=== PATIENT | female | born 1955 | race Caucasian/White ===

== ENCOUNTER 2020-03-23 19:53 | Emergency (ER) | payer MEDICARE, BC, SELFPAY ==
[2020-03-23 20:03] VITALS: BP 143/68; PULSE 79; RESP 16; TEMP 36.5; O2SAT 97
--- NOTE | 2020-03-23 20:11 | ED.GENADUL_ITS ---
Discharge Plan Disposition Patient Disposition: HOME Condition: Good Discharge Details Chief Complaint: Laceration Clinical Impression: Splinter Primary Care Provider: None,None ED Provider: Patrick Dexter Home Meds and New Rx's Prescriptions: New cephalexin [Keflex] 500 mg capsule 500 mg PO QID Qty: 20 RF: 0 Continued metformin 500 mg Tablet 500 mg PO DAILY RF: 0 atenolol 25 mg Tablet 25 mg PO DAILY RF: 0 simvastatin 40 mg Tablet 40 mg PO QPM RF: 0 diphenhydramine HCl [Benadryl] 25 mg Capsule 50 mg PO HS PRN (Reason: Sleep) RF: 0 sertraline 25 mg Tablet 25 mg PO DAILY RF: 0 melatonin 10 mg Tablet 10 mg PO HS PRNRF: 0 Discharge Instructions Instructions: Cephalexin (By mouth), Soft Tissue Foreign Body (ED) Additional Instructions: Encourage rest, ice, elevation. Tylenol and/or ibuprofen as needed for discomfort. Please use splint to help with discomfort. Please take the antibiotics as prescribed. Even if symptoms improve, please take the entire course. Please contact orthopedics to schedule follow-up appointment, number listed below. Referrals: Mauricio Tapia MD [ [facility] STAFF PHYSICIAN] - Discharge Data Discharge Date/Time-TO BE ENTERED AT DEPARTURE: 03/23/20 21:40 Medical Decision Making <NICK German - Last Filed: 03/24/20 12:11> Patient is a pleasant 65-year-old female presents today splinter in her left hand. She reports that 2 days ago she was making she is kebabs when if the wooden stick she was using insert and multiple fragments went into the dorsal aspect of the distal phalanx left middle digit. Patient is right-hand dominant. She has noted increased discomfort, swelling and erythema. She denies any fevers or chills. Erythema has not been spreading. She has not noted any discharge. She does state that she was able to do out some pieces but feels that there is a retained fragment still in the finger. Has not had surgery on this historically. Patient is concerned that she is supposed to undergo a aortic valve replacement and is concerned that infection may delay this. Tetanus is up-to-date. Patient also reports that she was advised not to have tetanus again as she was allergic last time she had approximately 6 years ago. Sensation is intact, brisk capillary refill. Unable to visualize or palpate any foreign body. Will obtain x-ray to evaluate for retained wooden fragment. <NICK Prather - Last Filed: 03/23/20 21:33> I assumed care of the patient pending imaging. Virtual radiology read x-ray as no convincing radiopaque foreign body. A faint calcification, ulnar aspect of the third DIP joint, in association degenerative changes. Likely chronic and degenerative in nature. I discussed these findings with patient. She already has a finger splint and was given her dose of Keflex. I evaluated her finger. No obvious foreign body identified. Potentially early cellulitis. Patient will be provided a prescription for Keflex and she will be given a referral to o rthopedics for reevaluation. Patient has no additional questions or concerns and is comfortable this plan HPI <NICK German - Last Filed: 03/24/20 12:11> General Mode of arrival: ambulatory . Date/Time Provider Initiated Documentation: 03/23/20 20:11 . Limitations to Documentation: no limitations . Information obtained by: patient and RN notes reviewed . History of Present Illness 65 year old F presents to the emergency department with the chief complaint of splinter dorsal left middle finger, described as severe, with intensity rated at 10. Quality is described as sharp, and is localized to the left and upper extremity. Patient reports no radiation. Patient started experiencing this day(s) (2) and it has been constant. Immobilization improves symptom(s), Movement worsens symptoms . Patient notes no other symptoms.. Patient did receive the following treatments prior to arrival, none Related Data Home Medications Medication Instructions Recorded Confirmed atenolol 25 mg PO DAILY 03/23/20 03/23/20 cephalexin [Keflex] 500 mg PO QID #20 cap 03/23/20 diphenhydramine HCl [Benadryl] 50 mg PO HS PRN 03/23/20 03/23/20 melatonin 10 mg PO HS PRN 03/23/20 03/23/20 metformin 500 mg PO DAILY 03/23/20 03/23/20 sertraline 25 mg PO DAILY 03/23/20 03/23/20 simvastatin 40 mg PO QPM 03/23/20 03/23/20 Previous Rx's Medication Instructions Recorded cephalexin [Keflex] 500 mg PO QID #20 cap 03/23/20 Allergies Allergy/AdvReac Type Severity Reaction Status Date / Time aspirin Allergy Unverified 03/23/20 20:06 cefaclor [From Ceclor] Allergy Unverified 03/23/20 20:06 Penicillins Allergy Unverified 03/23/20 20:06 Sulfa (Sulfonamide Allergy Unverified 03/23/20 20:06 Antibiotics) Tetanus Vaccines and Toxoid Allergy Unverified 03/23/20 20:06 General Stated Complaint: Laceration RAISSA: 4 Review of Systems <NICK German - Last Filed: 03/24/20 12:11> Constitutional Constitutional: Reports as per HPI, Denies chills and Denies fever(s) Musculoskeletal Musculoskeletal: Reports as per HPI Integumentary/Breasts Skin/Breast: Reports as per HPI Neurologic Neurologic: Reports as per HPI, Denies sensory deficit and Denies paresthesias PFSH <NICK German - Last Filed: 03/24/20 12:11> Social History Smoking/Tobacco Use Status: Never Alcohol Intake: current Alcohol Intake frequency: holidays/special occasions only Alcohol type: beer Drug use: Never Substance use type: does not use Do you feel safe at home: Yes Do you feel safe in your relationship?: Yes Exam <NICK German - Last Filed: 03/24/20 12:11> Const General: cooperative, healthy appearing, comfortable, no acute distress and well developed Nutritional Appearance: well nourished and overweight Orientation: alert and awake Resp Effort & Inspection: normal respiratory effort, able to speak in complete sentences and no respiratory distress Cardio Rate: regular rate Rhythm: regular rhythm Skin General skin exam: erythema (dorsal aspect of left middle finger over distal phalanx) Trauma: puncture (same side radial aspect) Neuro General: patient alert and patient awake Cognition: normal cognition Speech: speech normal Gait: normal gait Sensory Exam: no sensory deficits noted Extrem Left upper extremity: normal capillary refill, wrist Details: normal to inspection and hand Details: normal capillary refill, neuromotor exam normal, neurosensory exam normal, tendon exam normal (able to flex and extend DIP middle digit against resistance, 5/5), tenderness Location: of the 3rd digit Location: at the distal phalanx and at the DIP joint, vascular exam Details: radial pulse present and normal capillary refill, swelling Location: of the 3rd digit Location: at the distal phalanx and puncture wound (very small, healed over); no crepitus and no foreign bodies (none visualized); abnormal to inspection (skin as above) and ROM limited (limited flexion of the left middle DIP joint) Psych Appearance: grossly normal and well kempt Mental Status: mental status grossly normal Speech and Movement: speech and movement normal Course <NICK German - Last Filed: 03/24/20 12:11> Vital Signs Vital signs: Vital Signs Temperature 36.5 C 03/23/20 20:03 Pulse 79 03/23/20 20:03 Respiratory Rate 16 03/23/20 20:03 Blood Pressure 143/68 H 03/23/20 20:03 Pulse Oximetry 97 03/23/20 20:03 Temperature 36.5 C 03/23/20 20:03 Temperature Source Skin 03/23/20 20:03 Pulse 79 03/23/20 20:03 Respiratory Rate 16 03/23/20 20:03 Respiratory Effort 03/23/20 20:08 Blood Pressure 143/68 H 03/23/20 20:03 Pulse Oximetry 97 03/23/20 20:03 Oxygen Delivery Method Room Air 03/23/20 20:03 Oxygen Flow Rate 0 03/23/20 20:03 Pain Level 10 03/23/20 20:03 Sign Out <NICK German - Last Filed: 03/24/20 12:11> Sign Out Data: Sign Out Comment: Care transition to Venkatesh Dexter PA-C with imaging pending Last updated by Jocelyn Alarcon PA at 03/23/20 21:06
--- NOTE | 2020-03-23 20:15 | DI.RAD_ITS ---
EXAM: XR FINGER LT MIDDLE CLINICAL HISTORY: ? wooden FB distal phalanx TECHNIQUE: COMPARISON: No exams were available for comparison FINDINGS: Three views were obtained. There are degenerative changes at DIP joint. There is no evident foreign body or fracture. IMPRESSION:
[2020-03-23] MEDS: Cephalexin 500 MG CAP PO (21:10)
--- NOTE | 2020-03-23 21:14 | DI.VRAD_ITS ---
PROCEDURE INFORMATION: Exam: XR Left Finger(s) Exam date and time: 03/23/2020 20:51 Age: 65 years old Clinical indication: Other: ? Wooden fb distal phalanx TECHNIQUE: Imaging protocol: XR Left fingers. Views: Minimum 2 views. COMPARISON: No relevant prior studies available. FINDINGS: Bones/joints: No acute fracture or subluxation. A faint calcification, ulnar aspect of the 3rd DIP joint, in association with degenerative changes. Soft tissues: No convincing radiopaque foreign body. IMPRESSION: 1. No convincing radiopaque foreign body. 2. A faint calcification, ulnar aspect of the 3rd DIP joint, in association with degenerative changes. Likely chronic and degenerative in nature. Dictated and Authenticated by: Heidi Puckett MD. Ordering:MARYBETH Banks MD
== END 2020-03-23 21:40 | disposition home or self-care (01) ==
LOC: ER 21:37
PROVIDERS: Emergency Provider Physician Assistant
DX: S60.453A Superficial foreign body of left middle finger, initial encounter (principal); W45.8XXA Other foreign body or object entering through skin, initial encounter
CPT/HCPCS: 99283; 73140

== ENCOUNTER → 2020-03-26 11:24 | Outpatient (BNVA) | payer MEDICARE, BC, SELFPAY | PROVIDERS: Visit Provider Surgery | DX: S60.453A Superficial foreign body of left middle finger, initial encounter (principal); W45.8XXA Other foreign body or object entering through skin, initial encounter | CPT/HCPCS: 64450; 99202; 99213 ==

== ENCOUNTER → 2020-03-29 12:56 | Outpatient (BNVA) | payer MEDICARE, BC, SELFPAY | PROVIDERS: Visit Provider Surgery | DX: S60.453D Superficial foreign body of left middle finger, subsequent encounter (principal); W45.8XXD Other foreign body or object entering through skin, subsequent encounter | CPT/HCPCS: 10120; 99212 ==

== ENCOUNTER → 2020-03-31 12:53 | Outpatient (BNVA) | payer MEDICARE, BC, SELFPAY | PROVIDERS: Visit Provider Surgery | DX: Z48.817 Encounter for surgical aftercare following surgery on the skin and subcutaneous tissue (principal); T14.8XXA Other injury of unspecified body region, initial encounter ==

== ENCOUNTER 2020-09-04 08:13 | Emergency (ER) | payer MEDICARE, BC, SELFPAY ==
--- NOTE | 2020-09-04 08:15 | RT.EKG_ITS ---
APPROVED REPORT Exam: Resting ECG Patient Location: E HR:82 bpm ECG Measurements Heart Rate 82 AXIS SC 128 P 64 QRSd 93 QRS 22 QT 380 T 24 QTc 444 Conclusion Sinus rhythm...normal P axis, V-rate 60- 99 Physician: jenny, no stemi
[2020-09-04 08:22] VITALS: BP 185/79; PULSE 82; RESP 17; TEMP 36.5; O2SAT 96; O2SAT 97
--- NOTE | 2020-09-04 08:31 | W.ED.GENAD ---
Discharge Plan Disposition Patient Disposition: HOME Condition: Stable Discharge Details Clinical Impression: Diverticulitis Primary Care Provider: Rubina Lima ED Provider: Guillermina Marcos Home Meds and New Rx's Prescriptions: New ciprofloxacin HCl 500 mg tablet 500 mg PO BID 10 Days Qty: 20 RF: 0 metronidazole [Flagyl] 500 mg tablet 500 mg PO BID 10 Days Qty: 20 RF: 0 ondansetron HCl [Zofran] 4 mg tablet 4 mg PO Q8H PRN (Reason: nausea and vomiting) Qty: 7 RF: 0 Continued epinephrine 0.3 mg/0.3 mL auto-injector 0.3 mg IM ONCE PRN (Reason: anaphylaxis) Qty: 2 RF: 0 metformin 500 mg tablet 500 mg PO DAILY Qty: 90 RF: 3 simvastatin 40 mg Tablet 40 mg PO QPM RF: 0 melatonin 10 mg Tablet 10 mg PO HS PRNRF: 0 atenolol 25 mg tablet 25 mg PO DAILY RF: 0 diphenhydramine HCl [Benadryl] 25 mg capsule 50 mg PO HS RF: 0 Discharge Instructions Instructions: Diverticulitis (ED), Diverticulitis Diet (ED) Additional Instructions: Follow up with primary care provider in 3-5 days. Return to ED sooner if any worsening or concerns. Increase oral fluids. Take antibiotics as prescribed. Return for fever, continued vomiting or any concerns. Referrals: Rubina Lima, [employer] [Primary Care Provider] - Discharge Data Discharge Date/Time-TO BE ENTERED AT DEPARTURE: 09/04/20 13:22 Medical Decision Making 65-year-old female presents to the ER chief complaint of nausea vomiting and chills. She reports she woke up this morning with chills, urine with nausea and vomited. X3. Patient reports that she had 2 patches of red blood noted in one episode of emesis. Denies diarrhea or dysuria. Denies any chest pain or abdominal pain. She reports she did have a normal bowel movement this morning. Denies any other symptoms. She does have a past medical history of diverticulitis, diabetes, asthma, anxiety, murmur, osteoarthritis. Surgical history includes appendectomy, . Exam: CT Abdomen And Pelvis With Contrast Exam date and time: 09/04/2020 10:06 AM Age: 65 years old Clinical indication: Nausea and vomiting; Patient HX: Nausea, vomiting, HX of diverticulitis. (IV); COMPARISON: No relevant prior studies available. FINDINGS: Liver: Diffuse fatty infiltration of the liver. Gallbladder and bile ducts: Normal. No calcified stones. No ductal dilation. Pancreas: Normal. No ductal dilation. Spleen: Normal. No splenomegaly. Adrenal glands: Normal. No mass. Kidneys and ureters: Normal. No hydronephrosis. Stomach and bowel: Bulky diverticulosis of the descending colon and sigmoid colon. Mild pericolonic soft tissue stranding about the mid sigmoid colon involving a segment measuring approximately 10 cm in length. The wall of this segment of colon is slightly thickened and findings are most suggestive of acute diverticulitis. No free air is identified. No fluid collection is identified. Recommend follow-up CT or colonoscopy when acute symptoms have resolved to make sure that the bowel wall thickening does not represent circumferential. Large amount of stool in the colon. Appendix: No evidence of appendicitis. Intraperitoneal space: See Stomach and bowel finding. Vasculature: Vascular calcifications. No aneurysm identified. Very dense atheromatous calcification at the origin of the celiac artery. Lymph nodes: Unremarkable. No enlarged lymph nodes. Urinary bladder: Unremarkable as visualized. Reproductive: Unremarkable as visualized. Bones/joints: Degenerative arthritis in the spine and pelvis. Anterior bridging osteophytes lower thoracic spine. Soft tissues: Unremarkable. IMPRESSION: 1. Findings most consistent with acute sigmoid diverticulitis but circumferential bowel wall thickening should be correlated with repeat CT or colonoscopy history after acute symptoms are resolved 1056: Patient still complaining of nausea which increases when she moves. Upon entering room she is asleep but awakens easily. Discussed CT results and need for antibiotics. At this time patient states that she still feels very sick and she feels that this is the second she is ever felt. Hospitalist paged for possible admission for acute diverticulitis. Spoke with hospitalist who recommends trying a p.o. trial prior to excepting for admission. She also recommends consult with surgery. Patient was given a popsicle which she is tolerating without difficulty no further vomiting noted. At this time since she is tolerating p.o. will discharge home. She is getting IV antibiotics here in department. Discussed plan of care with patient who verbalizes understanding. HPI General Mode of arrival: ambulatory. Date/Time Provider Initiated Documentation: 09/04/20 08:14. Limitations to Documentation: no limitations. Information obtained by: patient. HPI Narrative: 65-year-old female presents to the ER chief complaint of nausea vomiting and chills. She reports she woke up this morning with chills, urine with nausea and vomited. X3. Patient reports that she had 2 patches of red blood noted in one episode of emesis. Denies diarrhea or dysuria. Denies any chest pain or abdominal pain. She reports she did have a normal bowel movement this morning. Denies any other symptoms. She does have a past medical history of diverticulitis, diabetes, asthma, anxiety, murmur, osteoarthritis. Surgical history includes appendectomy, . Related Data Home Medications Medication Instructions Recorded Confirmed melatonin 10 mg PO HS PRN 03/23/20 09/04/20 simvastatin 40 mg PO QPM 03/23/20 09/04/20 atenolol 25 mg tablet 25 mg PO DAILY 07/09/20 09/04/20 diphenhydramine HCl 25 mg capsule 50 mg PO HS 07/09/20 09/04/20 epinephrine 0.3 mg/0.3 mL 0.3 mg IM ONCE PRN #2 ea 07/09/20 09/04/20 injection, auto-injector metformin 500 mg tablet 500 mg PO DAILY #90 tab 07/09/20 09/04/20 ciprofloxacin HCl 500 mg PO BID 10 Days #20 tab 09/04/20 metronidazole [Flagyl] 500 mg PO BID 10 Days #20 tab 09/04/20 ondansetron HCl [Zofran] 4 mg PO Q8H PRN #7 tab 09/04/20 Previous Rx's Medication Instructions Recorded epinephrine 0.3 mg/0.3 mL 0.3 mg IM ONCE PRN #2 ea 07/09/20 injection, auto-injector metformin 500 mg tablet 500 mg PO DAILY #90 tab 07/09/20 ciprofloxacin HCl 500 mg PO BID 10 Days #20 tab 09/04/20 metronidazole [Flagyl] 500 mg PO BID 10 Days #20 tab 09/04/20 ondansetron HCl [Zofran] 4 mg PO Q8H PRN #7 tab 09/04/20 Allergies Allergy/AdvReac Type Severity Reaction Status Date / Time cefaclor [From [facility]] Allergy Severe hives Unverified 09/04/20 08:30 Tetanus Vaccines and Toxoid Allergy Severe red Unverified 09/04/20 08:30 swollen arm for weeks aspirin Allergy Intermediate Platlets Unverified 09/04/20 08:30 dont clot Penicillins Allergy Intermediate hives Unverified 09/04/20 08:30 diphenoxylate Allergy Unknown Unverified 09/04/20 08:30 Sulfa (Sulfonamide Allergy Unverified 09/04/20 08:30 Antibiotics) venom-wasp Allergy Verified 09/04/20 08:30 General Stated Complaint: GenMedical RAISSA: 3 Review of Systems Narrative: Constitutional: Negative for weight loss, alert and oriented, well groomed, normal body habitus, appears comfortable. HEENT: Denies trauma, headaches, blurry vision, nasal discharge, sore throat, trouble swallowing. Chest: Denies chest pain, palpitations, irregular rhythm, hypertension. Respiratory: Denies Shortness of breath, cough, hemoptysis. GI: Denies abdominal pain, diarrhea, constipation. Positive nausea vomiting : Denies dysuria, hematuria, flank pain, rectal bleeding. Neuro: Denies dizziness, blurry vision, weakness, syncope, headache or facial numbness. Hematologic: Denies easy bruising, intolerance to heat or cold, hair loss. [facility] Medical History Abnormality of heart beat arrhythmia Atenolol Anxiety Deep breathing Asthma PRN Albuterol rajiv during resp illness Bilateral cataracts Diabetes mellitus Dx'ed ~2017 Diverticulitis Fibromyalgia Manages with lifestyle; FLexeril PRN; recent fall exacerbates Migraine Ocular migraines; +scotoma, unilateral, usually without pain Murmur Aortic Valve; ECHO; [facility] Osteoarthritis hips, knees, hands; cold exacerbation Pneumonia Stress fracture of tibia Tinea corporis Surgical History History of appendectomy (~1958) History of (~1981) History of lumpectomy of right breast (~1993) History of right knee surgery (~2004) Family History Paternal Grandfather Alcohol abuse Mother Anxiety Depression Daughter Anxiety Asthma Niece , Age 23 Leukemia Father Diabetes Heart disease Hypertension Diverticulosis Uncle Diabetes Sister Diverticulosis Social History (Reviewed 09/04/20 @ 08:40 by Guillermina Mccarthy Smoking/Tobacco Use Status: Never Tobacco: How many years used: 1 Second Hand Exposure: Yes Smoking risk assessment performed?: Yes Alcohol Intake: current Alcohol Intake frequency: holidays/special occasions only Alcohol type: beer Drug use: Never Substance use type: does not use Adopted: No Caregiver/Support person: No Household members: spouse, family and children Housing: house Number of Children: 1 number of grandchildren: 4 Communication Needs: Corrective Lenses 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 Appears stated age. Normal body habitus. Head: Normocephalic, no trauma. Eyes: Pupils PERRLA, Red reflex noted, EOM's intact. Eyelids symmetrical without lesions, discharge, or swelling. ENT: Bilateral TM's WNL, External ear normal to inspection, no mastoid TTP, swelling, or erythema, Nasal turbinates WNL, no nasal discharge. Normal dentition, Posterior pharynx WNL, no exudate. Chest: RRR, murmur auscultated, distal pulses intact. Resp: Lungs clear to auscultation bilaterally, no wheezes, rales, or rhonchi. Abdomen: Soft nondistended, nontender to palpation all 4 quadrants. Musculoskeletal: Normal gait, 5/5 strength to all four extremities. Skin: No suspicious rashes or lesions. Capillary refill less than 2 sec. Neurologic: Cranial nerves II-XII intact. Alert and oriented x 3. DTR's intact. Hematologic/Lymphatic: No ecchymosis, no lymphadenopathy. Course Vital Signs Vital signs: Vital Signs Temperature 36.5 C 09/04/20 08:22 Pulse 82 09/04/20 08:22 Respiratory Rate 17 09/04/20 08:22 Blood Pressure 185/79 H 09/04/20 08:22 Pulse Oximetry 97 09/04/20 08:22 Temperature 36.5 C 09/04/20 08:22 Temperature Source Temporal Artery Scan 09/04/20 08:22 Pulse 82 09/04/20 08:22 Respiratory Rate 17 11/14/20 08:22 Respiratory Effort Non-Labored 09/04/20 08:26 Blood Pressure 185/79 H 09/04/20 08:22 Blood Pressure Position Supine 09/04/20 08:22 Pulse Oximetry 97 09/04/20 08:22 Oxygen Delivery Method Room Air 09/04/20 08:22 Oxygen Flow Rate 0 09/04/20 08:22
[2020-09-04] MEDS: Ondansetron 4 MG/2 ML VIAL IVP (08:48)
[2020-09-04] MEDS: Normal Saline 1,000 ML 1000 ML IV ×2 (08:48→11:19)
[2020-09-04 08:50] LABS: Abs Immature Grans 0.05 10^3/uL (0.0-0.06); Absolute Basophil Count 0.03 10^3/uL (0.0-0.2); Absolute Lymphocyte Count 1.09 10^3/uL (1.2-3.4); Absolute Neutrophil Count 11.15 10^3/uL (1.2-6.7); Basophils % 0.2; HCT 41.8 % (36.0-46.0); HGB 13.7 g/dL (11.2-15.7); Immature Grans % 0.4; Lymphocytes % 8.5; MCH 29.7 pg (27.0-33.0); MCHC 32.8 % (32.0-36.0); MCV 90.5 fL (80-95); MPV 10.6 fL (8.0-11.0); Monocytes % 4.3; Neutrophils % 86.6; Nucleated RBC 0 %; Platelet Count 153 10^3/uL (130-400); RBC 4.62 10^6/uL (3.93-5.22); RDW 12.6 % (11.7-14.6); RDW-SD 40.9 fL; WBC 12.88 10^3/uL (4.4-10.8)
[2020-09-04 08:51] LABS: Absolute Monocyte Count 0.55 10^3/uL (0.1-0.8); Lactate 2.2 mmol/L (0.6-1.4)
[2020-09-04 08:58] LABS: Bilirubin Negative (Negative); Blood Negative (Negative); Glucose Negative (Negative); Ketones Negative (Negative); Leukocyte Esterase Moderate (Negative); Nitrite Negative (Negative); Specific Gravity >= 1.030 (1.005-1.025); Urobilinogen 0.2 EU/dL (Up TO 0.2); pH 5.5 (5-8)
[2020-09-04 09:01] LABS: Clarity Sl Cloudy (Clear)
[2020-09-04 09:11] LABS: Bacteria Moderate HPF (Negative); C & S Indicated? Yes; Casts Negative LPF (Negative); Crystals Negative HPF (Negative); Epithelial Cells Few HPF (Negative); Mucus Trace (Negative); Other Cells Few Renal (Negative); RBC Negative HPF (0-2); WBC >50 HPF (0-5)
[2020-09-04 09:18] LABS: ALT 12 U/L (14-59); AST 22 U/L (15-37); Albumin 3.9 g/dL (3.4-5.0); Alkaline Phosphatase 73 U/L (46-116); Anion Gap 7.6 mmol/L (3-11); BUN 15 mg/dL (7-18); Bilirubin, Total 0.8 mg/dL (0.2-1.0); CO2 29.4 mmol/L (21.0-32.0); CREATININE 0.99 mg/dL (0.55-1.02); Calcium 8.8 mg/dL (8.5-10.1); Chloride 102 mmol/L (98-107); Estimated GFR 56.12 (mL/min/1.73m2); Glucose 164 mg/dL (74-106); Magnesium 1.8 mg/dL (1.8-2.4); Potassium 4.5 mmol/L (3.5-5.1); Sodium 139 mmol/L (136-145); Total Protein 7.7 g/dL (6.4-8.2)
[2020-09-04 09:20] LABS: Troponin I < 0.05 ng/mL (<0.06)
--- NOTE | 2020-09-04 10:10 | DI.CT_ITS ---
EXAM: CT ABDOMEN PELVIS W INDICATION: Nausea, vomiting, Hx of diverticulitis. COMPARISON: No exams were available for comparison TECHNIQUE: FINDINGS: CT examination of the abdomen and pelvis was performed with a bolus infusion of 100 cc of Omnipaque 3 50. Images obtained through the lung bases are unremarkable. The liver is unremarkable in appearance except for possible mild hepatic steatosis. No focal lesion identified.. Gallbladder and bile ducts are CT normal. Pancreas appears normal. Spleen is unremarkable in appearance. Adrenals appear normal. The kidneys are unremarkable with no evidence of hydronephrosis, nephrolithiasis, or renal mass.. Ur inary bladder unremarkable. Abdominal aorta is of normal diameter and no major vascular abnormality is seen. No abdominal wall hernia. No abdominal or pelvic adenopathy. MAT[employer]S [employer]ED[employer]ER structures appear intact. The appendix is not specifically identified but there is no evidence of appendicitis. There is circumferential wall thickening of significant portion of the sigmoid colon, mild pericoloni c fat edema may be present, findings are suggestive of sigmoid diverticulitis. Other etiologies not excluded, colonoscopy suggested following treatment. IMPRESSION: Findings suggesting acute sigmoid diverticulitis as described above. Possible mild hepatic steatosis. RADIATION DOSE DELIVERED: 1,366.5mGy.cm Total DLP 1,366.5mGy.cm Total DLP
--- NOTE | 2020-09-04 10:32 | DI.VRAD_ITS ---
PROCEDURE INFORMATION: Exam: CT Abdomen And Pelvis With Contrast Exam date and time: 09/04/2020 10:06 AM Age: 65 years old Clinical indication: Nausea and vomiting; Patient HX: Nausea, vomiting, HX of diverticulitis. TECHNIQUE: Imaging protocol: Computed tomography of the abdomen and pelvis with intravenous contrast. Radiation optimization: All CT scans at this facility use at least one of these dose optimization techniques: automated exposure control; mA and/or kV adjustment per patient size (includes targeted exams where dose is matched to clinical indication); or iterative reconstruction. Contrast material: OMNI-PAQUE 350; Contrast volume: 100 ml; Contrast route: INTRAVENOUS (IV); COMPARISON: No relevant prior studies available. FINDINGS: Liver: Diffuse fatty infiltration of the liver. Gallbladder and bile ducts: Normal. No calcified stones. No ductal dilation. Pancreas: Normal. No ductal dilation. Spleen: Normal. No splenomegaly. Adrenal glands: Normal. No mass. Kidneys and ureters: Normal. No hydronephrosis. Stomach and bowel: Bulky diverticulosis of the descending colon and sigmoid colon. Mild pericolonic soft tissue stranding about the mid sigmoid colon involving a segment measuring approximately 10 cm in length. The wall of this segment of colon is slightly thickened and findings are most suggestive of acute diverticulitis. No free air is identified. No fluid collection is identified. Recommend follow-up CT or colonoscopy when acute symptoms have resolved to make sure that the bowel wall thickening does not represent circumferential. Large amount of stool in the colon. Appendix: No evidence of appendicitis. Intraperitoneal space: See Stomach and bowel finding. Vasculature: Vascular calcifications. No aneurysm identified. Very dense atheromatous calcification at the origin of the celiac artery. Lymph nodes: Unremarkable. No enlarged lymph nodes. Urinary bladder: Unremarkable as visualized. Reproductive: Unremarkable as visualized. Bones/joints: Degenerative arthritis in the spine and pelvis. Anterior bridging osteophytes lower thoracic spine. Soft tissues: Unremarkable. IMPRESSION: 1. Findings most consistent with acute sigmoid diverticulitis but circumferential bowel wall thickening should be correlated with repeat CT or colonoscopy history after acute symptoms are resolved to make sure there is not an underlying mass. No fluid collection. No free air. No obstruction. Dictated and Authenticated by: Ariana Kennedy MD. Ordering:LEONARDO Sarmiento MD
[2020-09-04 11:14] VITALS: BP 140/68; PULSE 85; RESP 18; TEMP 36.6; O2SAT 97
[2020-09-04] MEDS: Ondansetron O.D.T. 4 MG TABEF PO (11:18)
[2020-09-04] MEDS: Meclizine 25 MG TAB PO (11:19)
[2020-09-04] MEDS: metroNIDAZOLE 500 MG/100 ML BAG 100 MG IVPB (11:19)
[2020-09-04] MEDS: CIPROFLOXACIN 400 MG/200 ML BAG 200 MG IVPB (12:21)
[2020-09-04 12:30] VITALS: BP 137/71; PULSE 86
[2020-09-04 12:34] LABS: Troponin I < 0.05 ng/mL (<0.06)
[2020-09-04 13:18] VITALS: BP 143/60; PULSE 77; RESP 17; TEMP 36.6; O2SAT 96
--- NOTE | 2020-09-04 16:58 | NUR.NOTE ---
Nursing Note: 1700---Daughter called asking when her mother should take her next dose of antibiotic---per Dr Yang--had IV doses in ER--start oral doses tommorow morning. Verbalizes under standing.
--- NOTE | 2020-09-04 17:21 | NUR.NOTE ---
Nursing Note: spoke with daughter who questions if fever requires return to ED. Consulted provider, who states presence of fever alone not reason to return to ED- if not with worsening symptoms. Pt's daughter educated on projected/expected timeline for improvement- may feel slightly better in 24-48 hours, then improving gradually.
== END 2020-09-04 13:22 | disposition home or self-care (01) ==
LOC: ER 12:43
PROVIDERS: Emergency Provider Registered Nurse Emergency; PCP Nurse Practitioner Adult Health
DX: K57.32 Diverticulitis of large intestine without perforation or abscess without bleeding (principal); R11.2 Nausea with vomiting, unspecified; E11.9 Type 2 diabetes mellitus without complications; Z79.84 Long term (current) use of oral hypoglycemic drugs
CPT/HCPCS: 36415; 80053; 87040; 93005; 96361; 96365; 96367; 96375; 99285; 74177; 81003; 81015; 83605; 83735; 84484; 85025; 87086; 93010; J0744; J2405

== ENCOUNTER 2020-09-08 21:04 | Outpatient (REF) | payer MEDICARE, BC, SELFPAY ==
[2020-09-08 19:40] LABS: Abs Immature Grans 0.03 10^3/uL (0.0-0.06); Absolute Basophil Count 0.01 10^3/uL (0.0-0.2); Absolute Eosinophil Count 0.01 10^3/uL (0.0-0.7); Absolute Lymphocyte Count 1.37 10^3/uL (1.2-3.4); Absolute Monocyte Count 0.74 10^3/uL (0.1-0.8); Absolute Neutrophil Count 4.61 10^3/uL (1.2-6.7); Basophils % 0.1; Eosinophils % 0.1; HGB 11.9 g/dL (11.2-15.7); Immature Grans % 0.4; Lymphocytes % 20.2; MCH 29.2 pg (27.0-33.0); MCHC 32.2 % (32.0-36.0); MCV 90.7 fL (80-95); MPV 10.6 fL (8.0-11.0); Monocytes % 10.9; Neutrophils % 68.3; Nucleated RBC 0 %; Platelet Count 175 10^3/uL (130-400); RBC 4.08 10^6/uL (3.93-5.22); RDW 12.2 % (11.7-14.6); RDW-SD 40.3 fL; WBC 6.77 10^3/uL (4.4-10.8)
== END 2020-09-08 21:24 ==
LOC: LBN 21:04
PROVIDERS: PCP Nurse Practitioner Adult Health; Visit Provider Nurse Practitioner Adult Health
DX: D72.829 Elevated white blood cell count, unspecified (principal); E11.9 Type 2 diabetes mellitus without complications; K57.92 Diverticulitis of intestine, part unspecified, without perforation or abscess without bleeding
CPT/HCPCS: 85025

== ENCOUNTER 2020-09-21 03:56 | Outpatient (CLI) | payer MEDICARE, BC, SELFPAY ==
[2020-09-21 09:21] LABS: HCT 42.8 % (36.0-46.0); HGB 13.9 g/dL (11.2-15.7); MCH 29.1 pg (27.0-33.0); MCHC 32.5 % (32.0-36.0); MCV 89.7 fL (80-95); MPV 10.5 fL (8.0-11.0); Platelet Count 290 10^3/uL (130-400); RBC 4.77 10^6/uL (3.93-5.22); RDW 12.4 % (11.7-14.6); RDW-SD 40.8 fL; WBC 7.41 10^3/uL (4.4-10.8)
[2020-09-21 10:29] LABS: Microalb ug/mg Crea 5.9 ug/mg Cr
[2020-09-21 10:38] LABS: ALT 19 U/L (14-59); AST 18 U/L (15-37); Alkaline Phosphatase 69 U/L (46-116); Anion Gap 6.9 mmol/L (3-11); BUN 19 mg/dL (7-18); Bilirubin, Total 0.9 mg/dL (0.2-1.0); CO2 29.1 mmol/L (21.0-32.0); CREATININE 1.04 mg/dL (0.55-1.02); Calcium 8.9 mg/dL (8.5-10.1); Chloride 102 mmol/L (98-107); Estimated GFR 53.02 (mL/min/1.73m2); Glucose 135 mg/dL (74-106); Lipase 74 U/L (73-393); Potassium 4.7 mmol/L (3.5-5.1); Sodium 138 mmol/L (136-145); TSH (W/Ref FT4) 1.43 uIU/mL (0.36-3.74); Total Protein 7.5 g/dL (6.4-8.2)
[2020-09-21 10:40] LABS: Hemoglobin A1C 6.3 % (<5.7)
[2020-09-21 10:58] LABS: Calculated LDL 92 mg/dL (<100); Cholesterol 178 mg/dL (<200); HDL Cholesterol 46 mg/dL (40-60); Triglyceride 204 mg/dL (<150)
[2020-09-23 04:45] LABS: Vitamin D 25 Total 23.4 ng/ml (30-100)
== END 2020-09-21 04:16 ==
PROVIDERS: PCP Nurse Practitioner Adult Health; Visit Provider Nurse Practitioner Adult Health
DX: E78.5 Hyperlipidemia, unspecified (principal); E11.9 Type 2 diabetes mellitus without complications; E55.9 Vitamin D deficiency, unspecified; F41.9 Anxiety disorder, unspecified; M85.80 Other specified disorders of bone density and structure, unspecified site; R10.9 Unspecified abdominal pain
CPT/HCPCS: 36415; 80053; 80061; 82306; 83690; 85027; 82043; 82570; 83036; 84443

== ENCOUNTER 2020-11-05 02:19 | Outpatient (CLI) | payer OTHER, SELFPAY ==
[2020-11-05 08:57] LABS: HCT 41.1 % (36.0-46.0); HGB 13.4 g/dL (11.2-15.7); MCH 29.2 pg (27.0-33.0); MCHC 32.6 % (32.0-36.0); MCV 89.5 fL (80-95); MPV 10.4 fL (8.0-11.0); Platelet Count 204 10^3/uL (130-400); RBC 4.59 10^6/uL (3.93-5.22); RDW 12.7 % (11.7-14.6); RDW-SD 41.5 fL; WBC 8.04 10^3/uL (4.4-10.8)
[2020-11-05 10:06] LABS: ALT 18 U/L (14-59); AST 17 U/L (15-37); Albumin 3.9 g/dL (3.4-5.0); Alkaline Phosphatase 74 U/L (46-116); Anion Gap 6.8 mmol/L (3-11); BUN 22 mg/dL (7-18); Bilirubin, Total 1.3 mg/dL (0.2-1.0); CO2 29.2 mmol/L (21.0-32.0); CREATININE 1.07 mg/dL (0.55-1.02); Chloride 101 mmol/L (98-107); Estimated GFR 51.31 (mL/min/1.73m2); Glucose 143 mg/dL (74-106); Potassium 4.5 mmol/L (3.5-5.1); Sodium 137 mmol/L (136-145); Total Protein 7.3 g/dL (6.4-8.2)
== END 2020-11-05 02:39 ==
PROVIDERS: PCP Nurse Practitioner Adult Health; Visit Provider Nurse Practitioner Adult Health
DX: E78.5 Hyperlipidemia, unspecified (principal); E55.9 Vitamin D deficiency, unspecified; E11.9 Type 2 diabetes mellitus without complications; F41.8 Other specified anxiety disorders; R79.89 Other specified abnormal findings of blood chemistry; K57.92 Diverticulitis of intestine, part unspecified, without perforation or abscess without bleeding; M85.88 Other specified disorders of bone density and structure, other site
CPT/HCPCS: 36415; 80053; 85027

== ENCOUNTER 2021-01-27 01:16 | Outpatient (CLI) | payer OTHER, SELFPAY ==
--- NOTE | 2021-01-27 10:02 | DI.RAD_ITS ---
CLINICAL HISTORY: r/o fx R posterior 11 12 ribs,RT RIB PAIN,PLEURODYNIA,R07.81,S/P FALL. COMPARISON: No exams were available for comparison FINDINGS: LUNGS:Clear. No pleural abnormality seen. HEART: Normal. MEDIASTINUM: Normal. BONES: No displaced rib fracture is seen. No bony destructive lesion is seen. Flowing osteophytes ar e no noted along the thoracic spine. Degenerative changes are seen in in both shoulders. OTHER FINDINGS: None. IMPRESSION: 1. Unremarkable radiographic appearance of the right ribs. 2. No acute pulmonary findings.
--- NOTE | 2021-01-27 10:02 | DI.RAD_ITS ---
EXAM: XR CERVICAL SPINE COMP 4-5V CLINICAL HISTORY: r/o fracture, s/p fall,CERVICALAGIA,M54.2,NECK PAIN. TECHNIQUE: 2D digital imaging was performed. COMPARISON: No exams were available for comparison FINDINGS: There is mild narrowing of the C2-3 and C6-7 disc spaces. There is moderate narrowing of the C3-4 th rough the C5-6 disc spaces. Endplate osteophytes are seen projecting mainly anteriorly. There are f acet degenerative changes throughout, greatest at C3-4 and C4-5. There is mild neural foraminal narr owing at these levels. There is straightening of the normal cervical lordosis secondary to the facet degenerative changes. IMPRESSION: Degenerative disc and facet changes, causing mild bilateral neural foraminal narrowing. DATA REPOSITORY: RADIATION DOSE DELIVERED:
--- NOTE | 2021-01-27 10:03 | DI.RAD_ITS ---
EXAM: XR THORACIC SPINE COMPLETE CLINICAL HISTORY: r/o fracture, s/p fall,S09.90XA,THORACIC BACK PAIN,M54.6. TECHNIQUE: 2D digital imaging was performed. COMPARISON: No exams were available for comparison FINDINGS: BONES: There is no fracture or destructive lesion. The vertebral bodies and posterior elements are un remarkable. DISKS: Flowing osteophytes are noted. SOFT TISSUE: Visualized lungs are clear. IMPRESSION: Degenerative disc changes. No acute abnormality. DATA REPOSITORY: RADIATION DOSE DELIVERED:
== END 2021-01-27 01:36 ==
PROVIDERS: PCP Nurse Practitioner Adult Health; Visit Provider Nurse Practitioner Adult Health
DX: S09.90XA Unspecified injury of head, initial encounter (principal); M54.6 Pain in thoracic spine; R07.81 Pleurodynia; W10.8XXA Fall (on) (from) other stairs and steps, initial encounter; M48.02 Spinal stenosis, cervical region; M50.322 Other cervical disc degeneration at C5-C6 level
CPT/HCPCS: 71046; 71100; 72050; 72072

== ENCOUNTER 2021-06-09 02:56 | Outpatient (CLI) | payer OTHER, SELFPAY ==
[2021-06-09 09:30] LABS: ALT 17 U/L (14-59); AST 18 U/L (15-37); Albumin 3.9 g/dL (3.4-5.0); Alkaline Phosphatase 69 U/L (46-116); Anion Gap 0.6 mmol/L (3-11); BUN 20 mg/dL (7-18); Bilirubin, Total 0.7 mg/dL (0.2-1.0); CO2 28.4 mmol/L (21.0-32.0); CREATININE 0.9 mg/dL (0.55-1.02); Calcium 8.9 mg/dL (8.5-10.1); Chloride 106 mmol/L (98-107); Glucose 138 mg/dL (74-106); Potassium 4.2 mmol/L (3.5-5.1); Sodium 135 mmol/L (136-145); Total Protein 6.9 g/dL (6.4-8.2)
== END 2021-06-09 02:57 | disposition home or self-care (01) ==
PROVIDERS: PCP Nurse Practitioner Adult Health; Visit Provider Nurse Practitioner Adult Health
DX: E55.9 Vitamin D deficiency, unspecified (principal); M85.80 Other specified disorders of bone density and structure, unspecified site; R79.89 Other specified abnormal findings of blood chemistry; R17 Unspecified jaundice
CPT/HCPCS: 36415; 80053; 82306

== ENCOUNTER 2023-07-06 12:38 | Outpatient (CLI) | payer OTHER, SELFPAY ==
--- OUTSIDE RECORDS SUMMARY | 2023-07-06 12:41 | XMS_ITS | Continuity of Care Document ---
Author Name Unknown Organization [facility] Address [address] [place] [address] Care Team Providers Care Cup Trimming Machine Operator Name Role Phone Rubina Galdamez Primary Care Physician [phone] Encounter [facility] [id number] Date(s): 03/27/23 - 03/27/23 [facility] [address] [place] [address] Discharge Disposition: Home Allergies, Adverse Reactions, Alerts Substance Reaction Severity Status cefaclor Unknown Active aspirin Moderate Active diphenoxylate Mild Active penicillins Mild Active sulfa drugs Mild Active Wasps Mild Active Assessment and Plan Future Appointments Medications Albuterol (Eqv-ProAir HFA) 90 mcg/inh inhalation aerosol 0 Refill(s) Start Date: 03/22/23 Status: Ordered aspirin 81 mg oral capsule 81 mg = 1 cap, Oral, Daily, do not exceed 48 capsules in 24 hours, # 30 cap, 0 Refill(s) Start Date: 03/22/23 Status: Ordered atorvastatin 40 mg oral tablet 40 mg = 1 tab, Oral, Daily, # 30 tab, 0 Refill(s) Start Date: 03/22/23 Status: Ordered cyclobenzaprine 5 mg oral tablet 5 mg = 1 tab, Oral, TID, PRN as needed for muscle spasm, # 30 tab, 0 Refill(s) Start Date: 03/22/23 Status: Ordered EPINEPHrine 0.3 mg injectable kit 0.3 mg =, IM, Once, # 1 EA, 0 Refill(s) Start Date: 03/22/23 Status: Ordered melatonin 10 mg oral tablet 10 mg = 1 tab, Oral, every night at bedtime, PRN as needed for insomnia, # 200 tab, 0 Refill(s) Start Date: 03/22/23 Status: Ordered metoprolol succinate 50 mg oral capsule, extended release 50 mg = 1 cap, Oral, Daily, # 30 cap, 0 Refill(s) Start Date: 03/22/23 Status: Ordered nystatin 100,000 units/g topical cream 1 yesenia, Topical, BID, # 15 g, 0 Refill(s) Start Date: 03/22/23 Status: Ordered Vitamin D3 50 mcg (2000 intl units) oral tablet, chewable 50 mcg = 1 tab, Oral, Daily, # 30 EA, 0 Refill(s) Start Date: 03/22/23 Status: Ordered zolpidem 5 mg oral tablet See Instructions, PRN as needed for insomnia, Take 1 tab PO on night of sleep study AFTER setup, may repeat x 1 if ineffective after 30 min., # 2 tab, 0 Refill(s), Pharmacy: [phone] Start Date: 03/23/23 Status: Ordered Problem List Condition Confirmation Course Effective Dates Status H ealth Status Informant Anxiety Confirmed Active Diabetes Confirmed Active Fibromyalgia Confirmed Active Hyperlipidemia Confirmed Active Insomnia Confirmed Active Obesity Confirmed Active Osteopenia Confirmed Active Snoring Confirmed Active Vitamin D deficiency Confirmed Active Social History Social History Type Response Tobacco Former tobacco user Tobacco Use:. briefly per day. Sex Patient Care team information Care Team Personnel Name: Rubina Galdamez APRN Position: No Access Member Role: Primary Care Physician Address: Address: [address] [address]- Care Team Related Persons Name: ADALI MCGOWAN Address: Home [address] [place] [address] Name: DAGOBERTO FIGUEROA Address: Home [address] [facility] [address] [place], [place] [id number]
--- OUTSIDE RECORDS SUMMARY | 2023-07-06 12:41 | XMS_ITS | Continuity of Care Document ---
Author Name Unknown Organization [facility] Amb[facility] Address [address] [place] [address] Care Team Providers Care Consumer Banker Name Role Phone ESTELA MARQUEZ Primary Care Physician [phone] Encounter [facility] NBR [id number] Date(s): 12/29/22 - 12/29/22 [facility] [address] [place] [address]- [place] Encounter Diagnosis Metatarsal bone fracture(Discharge Diagnosis) - 12/29/22 Discharge Disposition: Home or Self Care Attending Physician: Neymar Vogt MD Allergies, Adverse Reactions, Alerts Substance Reaction Severity Status penicillin Rash Unknown Active sulfa drugs Rash Mild Active Ceclor 1 Moderate Active 1MOUTH SORES Functional Status 12/29/22 Other exposure to Infectious Disease Non e Medications aspirin 81 mg oral capsule 81 mg = 1 cap, Oral, Daily, do not exceed 48 capsules in 24 hours, # 30 cap, 0 Refill(s) Start Date: 10/20/22 Status: Ordered atorvastatin 40 mg oral tablet 40 mg = 1 tab, Oral, Daily, # 90 tab, 0 Refill(s) Start Date: 10/20/22 Status: Ordered metFORMIN 500 mg oral tablet 500 mg = 1 tab, Oral, BID, # 180 tab, 0 Refill(s) Start Date: 10/20/22 Status: Ordered metoprolol succinate 50 mg oral capsule, extended release 50 mg = 1 cap, Oral, Daily, # 90 cap, 0 Refill(s) Start Date: 10/20/22 Status: Ordered multivitamin adult, oral tablet 1 tab, Oral, Daily, # 90 tab, 0 Refill(s) Start Date: 10/20/22 Status: Ordered sertraline 100 mg oral tablet 100 mg = 1 tab, Oral, Daily, # 30 tab, 0 Refill(s) Start Date: 10/20/22 Status: Ordered Vitamin D3 50 mcg (2000 intl units) oral tablet, chewable 50 mcg = 1 tab, Oral, Daily, # 30 EA, 0 Refill(s) Start Date: 10/20/22 Status: Ordered Problem List Condition Confirmation Course Effective Dates Status Health Status Informant Arthritis Confirmed Active Active asthma Confirmed Active Diabetes Confirmed Active Fibromyalgia Confirmed Active Hyperlipemia Confirmed Active Mild HTN Confirmed Active Metatarsal bone fracture Confirmed Active Osteopenia Confirmed Active Sprain of right acromioclavicular joint Confirmed Active Procedures Procedure Date Related Diagnosis Body Site Status Appendectomy 1 Completed section 2 Comple nancy Knee 3 Completed Lumpectomy of right breast 4 Completed Open heart surgery 5 Comp leted [id number] 3MENISCUS REPAIR 2004 4BENIGN 1993 5VALVE REPLACEMENT 2020 Vital Signs Most recent to oldest [Reference Range]: 1 Peripheral Pulse Rate [60-100 bpm] 68 bp m (12/29/22 12:32 PM) Blood Pressure [90-140/60-90 mmHg] 138/8 2mmHg (12/29/22 12:32 PM) Weight 100.24 kg (12/29/22 12:32 PM) Weight Measured (lbs) 220.991 lb (12/29/22 12:32 PM) Height 157.48 cm (12/29/22 12:32 PM) Height/Length Measured (inches) 62 inch (12/29/22 12:32 PM) BSA Measured 2.09 m2 (12/29/22 12:32 PM) Body Mass Index 40.42 kg/m2 (12/29/22 12:32 PM) Social History Social History Type Response Tobacco Never tobacco user T obacco Use:. Sex Physician Outpatient Note * Neymar Vogt MD: PERFORM Event Display: Office Clinic Note Physician Authored Date: [id number] JACQUI FIGUEROA :1955 Age:67 years Sex:Female Visit Date:12/29/2022 Primary Care Physician: ESTELA MARQUEZ Chief Complaint L 5th toe fx- XR today History of Present Illness The patient roughly 1 month ago was ambulating in her basement barefoot,??she tripped and fell she is not sure the exact mechanism??because at the same time she hit her head??and sustained a significant laceration,??she went to urgent care??with both foot??pain as well as the laceration.?? She had x-rays taken and was placed in a boot.?? Since that time she says the pain has improved but she continues to have discomfort??between the fourth and fifth digit??on the??left foot, patient discontinued the brace??few weeks ago. Physical Exam Vitals & Measurements HR:??68??(Peripheral)?? BP:??138/82?? SpO2:??97%?? HT:??157.48??cm?? WT:??100.24??kg?? BMI:??40.42?? BSA:??2.09?? Review of studies: X-rays of the patient's left foot show a??displaced intra- articular fracture at the base??of the proximal phalanx of the fifth toe,??fortunately this comprises less than 20% of thejoint surface. ?? Examination left foot??shows patient can flex and extend all 5 toes with good power,??she does have tenderness at the MCP joint of the fifth??ray,??the skin is intact. Assessment/Plan 1.??Metatarsal bone fracture??S92.309A Patient with a intra-articular proximal phalanx fracture of the fifth toe,??fortunately this is a fairly small avulsion??and I think??likely will not cause the patient any significant problems I recommend she go back in a boot for 2 to 3 weeks and I think her pain will resolve,??if it does not she will let me know and come back to see us. Orders: XR Toe(s) 2+ Views Left, 12/29/22 12:02:00 EST, Routine, Reason: toe fx, Transport Mode: Ambulatory, Toe fracture, left, ABN Status: Not Required Problem List/Past Medical History Ongoing Active asthma Arthritis Diabetes Fibromyalgia Hyperlipemia Metatarsal bone fracture Mild HTN Morbid obesity Osteopenia Sprain of right acromioclavicular joint Historical No qualifying data Procedure/Surgical History ???Appendectomy??? section???Knee???Lumpectomy of right breast???Open heart surgery Medications aspirin 81 mg oral capsule, 81 mg= 1 cap, Oral, Daily atorvastatin 40 mg oral tablet, 40 mg= 1 tab, Oral, Daily metFORMIN 500 mg oral tablet, 500 mg= 1 tab, Oral, BID metoprolol succinate 50 mg oral capsule, extended release, 50 mg= 1 cap, Oral, Daily multivitamin adult, oral tablet, 1 tab, Oral, Daily sertraline 100 mg oral tablet, 100 mg= 1 tab, Oral, Daily Vitamin D3 50 mcg (2000 intl units) oral tablet, chewable, 50 mcg= 1 tab, Oral, Daily Allergies Ceclor sulfa drugs??(Rash) penicillin??(Rash) Social History Alcohol Current, Wine- Comments: OCCASSIONALLY Electronic Cigarette/Vaping Electronic Cigarette Use: Never. 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 Tobacco Never tobacco user Tobacco Use:. Family History Diabetes mellitus: Mother and Father. Heart attack: Mother and Father. Hyperlipidemia: Mother and Father. Hypertension: Grandmother (M). Osteoporosis: Mother. Electronically Signed on 12/29/22 12:47 PM Neymar Vogt MD Patient Care team information Care Team Personnel Name: ESTELA MARQUEZ Position: No Access Member Role: Primary Care Physician Address: Address: [address] [place] [id number] [place] Care Team Related Persons Name: AMALIA MCGOWAN Name: JAYLENE MCGOWAN Name: DAGOBERTO FIGUEROA Address: Home [address] [place], [place] [id number] [facility]
--- OUTSIDE RECORDS SUMMARY | 2023-07-06 12:41 | XMS_ITS | Continuity of Care Document ---
Author Name Unknown Organization [facility] Address [address] [place] [address] Care Team Providers Care Behavioral Health Technician Name Role Phone Rubina Galdamez Primary Care Physician [facility] Date(s): 04/26/23 - 04/26/23 [facility] [address] [place] [address] Encounter Diagnosis SILVANO (obstructive sleep apnea)(Discharge Diagnosis) - 04/26/23 Nocturnal hypoxemia(Discharge Diagnosis) - 04/26/23 Discharge Disposition: Home or Self Care Attending Physician: Susan Moncada [employer] Allergies, Adverse Reactions, Alerts Substance Reaction Severity Status cefaclor Unknown Active aspirin Moderate Active diphenoxylate Mild Active penicillins Mild Active sulfa drugs Mild Active Wasps Mild Active Assessment and Plan Future Appointments Functional Status 04/26/23 Other exposure to Infectious Disease Non e Medications Albuterol (Eqv-ProAir HFA) 90 mcg/inh inhalation [...] min., # 2 tab, 0 Refill(s), Pharmacy: [id number] Start Date: 03/23/23 Status: Ordered Problem List Condition Confirmation Course Effective Dates Status H ealth Status Informant Anxiety Confirmed Active Diabetes Confirmed Active Fibromyalgia Confirmed Active Hyperlipidemia Confirmed Active Insomnia Confirmed Active Obesity Confirmed Active Osteopenia Confirmed Active Snoring Confirmed Active Vitamin D deficiency Confirmed Active Vital Signs Most recent to oldest [Reference Range]: 1 Weight 99.79 kg (04/26/23 3:24 PM) Weight Measured (lbs) 219.999 lb (04/26/23 3:24 PM) Height 158 cm (04/26/23 3:24 PM) Height/Length Measured (inches) 62.2 inc h (04/26/23 3:24 PM) BSA Measured 2.09 m2 (04/26/23 3:24 PM) Body Mass Index 39.97 kg/m2 (04/26/23 3:24 PM) Social History Social History Type Response Tobacco Former tobacco user Tobacco Use:. briefly per day. Sex Physician Outpatient Note * Susan Moncada [employer]: PERFORM Event Display: Office Clinic Note Physician Authored Date: [id number] JACQUI FIGUEROA :1955 Age:68 years Sex:Female Visit Date:04/26/2023 Primary Care Physician: Rubina Galdamez APRN Chief Complaint PSG follow-up History of Present Illness The patient is a pleasant 68 female who follows up today for her PSG results. ??Due to the severityof her SILVANO??follow-up was scheduled GOGO. ? Patient reports that she slept okay on the night of her sleep study and that it was close to a typical night sleep for her.?? She??has a family??members who are currently??treated with CPAP??and are doing well. ??She is looking forward to getting started??on PAP therapy??in hopes to improve??hersleep quality??and daytime energy. ??No new concerns or changes since her last office visit Review of Systems A 10-point REVIEW OF SYSTEM was obtained and reviewed, includes CONSTITUTIONAL, EYES, NOSE, THROAT,RESPIRATORY, HEART, GASTROINTESTINAL, UROLOGIC, MUSCULOSKELETAL, PSYCHIATRY, SKIN systems. Pertinent symptoms are discussed in history, otherwise negative. Physical Exam Vitals & Measurements HT:??158??cm?? WT:??99.79??kg?? BMI:??39.97?? BSA:??2.09?? GENERAL:??well appearing, appearing??stated??age, no acute distress,??obese??build PSYCHIATRIC: well groomed, fluent speech, good insight, linear thought process, good eye contact,??balanced??affect NEUROLOGIC: alert, oriented, symmetric facial expression Clinic Assessment/Plan 1.??SILVANO (obstructive sleep apnea)??G47.33 The patient is a pleasant 68-year-old female who follows up today for PSG results.?? Due to the severity of her SILVANO the patient was scheduled for an GOGO follow-up.?? PSG performed 04/18/2023 reveals Severe Obstructive Sleep Apnea associated with significant nocturnal hypoxemia. Only supine positionsleep was observed.??Overall AHI: 42.3/hr; Overall RDI: 43.1/hr; REM AHI: 47.1/hr; Supine AHI: 42/hr; Right Lateral AHI:N/A /hr; Left Lateral AHI: N/A/hr; Prone AHI: N/A/hr. ?? We reviewed sleep study results in detail including apnea hypopnea index, positional data and oxygen data. We reviewed discussion of Obstructive Sleep Apnea, including pathophysiology, associated exterminator helper termite cardiovascular, neurocognitive and overall health effects, and importance of treatment. Jaime atment options discussed. Extensively reviewed process of starting treatment and commonly encountered problems and ways to find support and troubleshooting problems.?? Given the severity of his SILVANO the preferred treatment??is CPAP therapy.? I discussed different mask options and the importanceof finding the mask that will work for??her??within the first 30 days. I discussed how to adjust humidity for dryness/congestion and that the goal will be to use nightly for??her??total sleep time. Icovered insurance compliance requirements and the DME's mask exchange policy.??Once patient is acclimated to her cpap tx??will have consider and titration study if she continues to have residual AHI and sleep related symptom.? I will see??titus between 31-90 days after starting CPAP and??she??is encouraged to call me sooner if??she??is having any difficulties tolerating CPAP. ?? Actions: COMPLETED - Referral Management, Medical Service: RM Other, Reason: The medical store[facility], GOGO Severe SILVANO with significant nocturnal hypoxemia New CPAP user, start auto CPAP 5 to 15 cm H2O, pleasedispense water chamber, 99 days/lifetime, Start: 04/26/23 ?? 2.??Nocturnal hypoxemia??G47.34 Mean SpO2: 87% and Elmer SpO2: 60% on Room Air; 184.2 minutes spent with SpO2 less than or equal to88% on Room Air.?? Will reevaluate after patient is acclimated to??Pap therapy. ?? I provided greater than??30?minutes in the care of this patient, more than half the time was spent in [id number] counseling. ?with comorbidities of obesity, osteopenia, vitamin D deficiency, insomnia, HLD, anxiety (sertraline 100mg QD), fibromyalgia, diabetes, heart valve replacement (08/2021) ? Clinical Data Reviewed: [place] Sleepiness Scale: 08/14 ? Sleep Clinical Timeline:? 03/23/2023: New patient sleep consult at the kind request of Rubina Galdamez APRN. Suspect Obstructive Sleep Apnea based on snoring, frequent nocturnal awakenings, nonrestorative sleep, excessivedaytime sleepiness, bruxism, waking up with a sore throat, crowded airway, Mallampati 2, macroglossia,??ESS 08/14, [place] Questionnaire 23.??Recommend Mg gluconate 250-500mg qHS for insomnia and legcramps. ?? 04/18/2023. PSG diagnostic. snoring,??frequent nocturnal awakenings,nonrestorative sleep, excessive??daytime sleepiness, bruxism, waking??up with a sore throat,??crowded airway on exam, ESS 08/14, [place] Questionnaire 11/24. 1.??Severe Obstructive Sleep Apnea associated with significant nocturnal hypoxemia. Only supine position sleep was observed. 2.??Overall AHI: 42.3/hr; Overall RDI: 43.1/hr; REM AHI: 47.1/hr; Supine AHI: 42/hr; Right Lateral AHI:N/A /hr; Left Lateral AHI: N/A/hr; Prone AHI: N/A/hr. 3.??Mean SpO2: 87% and Elmer SpO2: 60% on Room Air; 184.2 minutes spent with SpO2 less than or equal to 88% on Room Air. 4.??Mild Periodic Limb Movement Disorder without significant arousals. PLM index 8.3/hr. PLM arousal index 0.2/hr.??Frequent leg movements observed in association with respiratory events, which did not meet criteria to be included in Periodic Limb Movement Index. 5.??Note, the sleep lab lost power at 23:25 to 2:30am. Patient remained asleep for most of this time and was explained the situation during brief wake up. Decision to continue study and patient met the 6 hour recording minimum before leaving sleep study. ?? 04/26/2023.?? GOGO follow-up PSG results.?? New order sent to [facility]??for new CPAP machine and Pap supplies.?? Auto CPAP 5 to 15 cm H2O. ? Today's Assessment and Plan: See above. ?? Follow up: 2 months or sooner if needed ?? This visit was performed virtually using synchronous audio-visual connection via Zoom. As such, the physical examination is necessarily limited. The risks and benefits of the use of this alternative platform were discussed with the patient and or guardian and verbal consent was obtained. My assessment and plans are based on such examination. Further evaluation, including in-person examination,may be needed depending on the response to management or today's recommendation.? The patient is??home.?? The provider is??in the office. ?? The patient has been positively identified and has consented to a video visit. ?? The time spent in counseling and coordination of care was?? Problem List/Past Medical History Ongoing Anxiety Diabetes Fibromyalgia Hyperlipidemia Insomnia Obesity Osteopenia Snoring Vitamin D deficiency Historical No qualifying data Medications What How Much When Why Instructions Unchanged albuterol (Albuterol (Eqv-ProAir HFA) 90 mcg/ inh inhalation aerosol) Unchanged aspirin (aspirin 81 mg oral capsule) 1 Capsules Oral (given by mouth) Every day do not exceed 48 capsules in 24 hours ?? Unchanged atorvastatin (atorvastatin 40 mg oral tablet) 1 tab Oral (given by mouth) Every day Unchanged cholecalciferol (Vitamin D3 50 mcg (2000 intl units) oral tablet, chewable) 1 tab Oral (given by mouth) Every day Unchanged cyclobenzaprine (cyclobenzaprine 5 mg oral tablet) 1 tab Oral (given by mouth) 3 times a day as needed for as needed for muscle spasm Unchanged EPINEPHrine (EPINEPHrine 0.3 mg injectable kit) 0.3 Milligrams Intramuscular (in a muscle) Once Unchanged melatonin (melatonin 10 mg oral tablet) 1 tab Oral (given by mouth) Every night at bedtime as needed for as needed for insomnia Unchanged metoprolol (metoprolol succinate 50 mg oral capsule, extended release) 1 Capsules Oral (given by mouth) Every day Unchanged nystatin topical (nystatin 100,000 units/ g topical cream) 1 Application Topical (on the skin) 2 times a day Unchanged zolpidem (zolpidem 5 mg oral tablet) See instructions Snoring Restless legs Insomnia Leg cramps Take 1 tab PO on night of sleep study AFTER setup, may repeat x 1 if ineffective after 30 min., As needed for as needed for insomnia ?? Allergies aspirin Wasps diphenoxylate penicillins sulfa drugs cefaclor Social History Electronic Cigarette/Vaping Electronic Cigarette Use: Never. Tobacco Former tobacco user Tobacco Use:. briefly per day. Electronically Signed on 04/26/23 04:08 PM Susan Moncada NP Patient Care team information Care Team Personnel Name: Rubina Galdamez APRN Position: No Access Member Role: Primary Care Physician Address: Address: [place] [address]- Care Team Related Persons Name: ADALI MCGOWAN Address: Home [address] [place] [address] Name: DAGOBERTO FIGUEROA Address: Home [address] [place], [place] [id number]
--- OUTSIDE RECORDS SUMMARY | 2023-07-06 12:41 | XMS_ITS | Continuity of Care Document ---
Author Name Unknown Organization [facility] Address [address] [place] [address] Care Team Providers Care Checking Department Supervisor Name Role Phone ESTELA MARQUEZ Primary Care Physician [phone] Encounter [facility] NBR [id number] Date(s): 08/17/22 - 08/18/22 [facility] [address] [place], [place] [address] Discharge Disposition: Home Attending Physician: Sly Pate Admitting Physician: Sly Pate Referring Physician: ESTELA MARQUEZ Patient Care team information Personnel Name: ESTELA MARQUEZ Address: Address: [address] [place] [phone] [place]
--- OUTSIDE RECORDS SUMMARY | 2023-07-06 12:42 | XMS_ITS | Continuity of Care Document ---
Author Name Unknown Organization [facility] Address [address] [place] [phone] Care Team Providers Care Brick Pointer Name Role Phone ESTELA MARQUEZ Primary Care Physician [phone] Encounter [facility] [id number] Date(s): 10/20/22 - 10/20/[address] [address] Discharge Disposition: Home or Self Care Attending Physician: Neymar Vogt MD Admitting Physician: Neymar Vogt MD Referring Physician: Neymar Vogt MD Allergies, Adverse Reactions, Alerts Substance Reaction Severity Status penicillin Rash Unknown Active sulfa drugs Rash Mild Active Ceclor 1 Moderate Active 1MOUTH SORES Medications aspirin 81 mg oral capsule 81 [...] Hyperlipemia Confirmed Active Mild HTN Confirmed Active Osteopenia Confirmed Active Sprain of right acromioclavicular joint Confirmed Active Procedures Procedure Date Related Diagnosis Body Site Status Appendectomy 1 Completed section 2 Comple nancy Knee 3 Completed Lumpectomy of right breast 4 Completed Open heart surgery 5 Comp leted 49976 [id number] 3MENISCUS REPAIR 2004 4BENIGN 1993 5VALVE REPLACEMENT 2020 Results Radiology Reports * Exam Date Time Procedure Performing Provider Status 10/20/22 1:18 PM XR Clavicle Right Vonda Lr; Au th (Verified) Notes: (XR Clavicle Right) Reason For Exam: right clavicle fracture XR Clavicle Right EXAM DESCRIPTION: XR Clavicle Right two views 10/20/2022 INDICATION: RIGHT CLAVICLE FRACTURE COMPARISON: None IMPRESSION: No acute right clavicle fracture identified Right AC joint and glenohumeral joint appear intact AC joint and glenohumeral joint arthritic changes with joint space narrowing. JOB #: [id number] Final Signed by: Venu Alvarez MD Signed (Electronic Signature): 10/20/2022 1:25 pm Social History Social History Type Response Tobacco Never tobacco user T obacco Use:. Sex XR Clavicle - right Views * Venu Alvarez MD: VERIFY, VERIFY Event Display: Report EXAM DESCRIPTION: XR Clavicle Right two views 10/20/2022 INDICATION: RIGHT CLAVICLE FRACTURE COMPARISON: None IMPRESSION: No acute right clavicle fracture identified Right AC joint and glenohumeral joint appear intact AC joint and glenohumeral joint arthritic changes with joint space narrowing. JOB #: [id number] Final Signed by: Venu Alvarez MD Signed (Electronic Signature): 10/20/2022 1:25 pm Patient Care team information Personnel Name: ESTELA MARQUEZ Address: Address: [address] [place] [phone]
--- OUTSIDE RECORDS SUMMARY | 2023-07-06 12:42 | XMS_ITS | Continuity of Care Document ---
Author Name Unknown Organization [facility] Ambulatory Clinics Address [address] [place] [address] Care Team Providers Care Technician Terminal And Repeater Name Role Phone ESTELA MARQUEZ Primary Care Physician [phone] Encounter [facility] NBR [id number] Date(s): 11/15/22 - 11/15/22 [facility] Ambulatory Clinics [address] [place] [address] [place] Encounter Diagnosis Foot injury(Discharge Diagnosis) - 11/15/22 Toe fracture(Discharge Diagnosis) - 11/15/22 Discharge Disposition: Home or Self Care Attending Physician: Yancy Fields APRN Allergies, Adverse Reactions, Alerts Substance Reaction Severity Status penicillin Rash Unknown Active sulfa drugs Rash Mild Active Ceclor 1 Moderate Active 1MOUTH SORES Assessment and Plan Future Appointments Functional Status 11/15/22 Family Member Travel History No recent t ravel Recent Travel History No recent travel Other exposure to Infectious Disease Non e [...] Completed Open heart surgery 5 Comp leted [id number] 3MENISCUS REPAIR 2004 4BENIGN 1993 5VALVE REPLACEMENT 2020 Vital Signs Most recent to oldest [Reference Range]: 1 Temperature Tympanic [36.6-37.9 Deg C] 3 6.3 Deg C *LOW* (11/15/22 4:20 PM) Peripheral Pulse Rate [60-100 bpm] 69 bp m (11/15/22 4:20 PM) Respiratory Rate [12-24 br/min] 16 br/mi n (11/15/22 4:20 PM) Blood Pressure [90-140/60-90 mmHg] 142/7 8mmHg *HI* (11/15/22 4:20 PM) Weight 100.24 kg (11/15/22 4:20 PM) Weight Measured (lbs) 220.991 lb (11/15/22 4:20 PM) Social History Social History Type Response Tobacco Never tobacco user T obacco Use:. Sex Hospital Discharge Instructions Patient Education 11/15/2022 16:08:22 Toe Fracture Toe Fracture A toe fracture is a break in one of the toe bones (phalanges). A toe fracture may be: ??? A crack in the surface of the bone (stress fracture). This often occurs in athletes. ??? A break all the way through the bone (complete fracture). What are the causes? This condition may be caused by: ??? Direct impact, such as from dropping a heavy object on your toe. ??? Stubbing your toe. ??? Twisting or stretching your toe out of place. ??? Overuse or repetitive exercise. What increases the risk? You are more likely to develop this condition if you: ??? Play contact sports. ??? Have a condition that causes the bones to become thin and brittle (osteoporosis). ??? Have a low calcium level. What are the signs or symptoms? The main symptoms of this condition are swelling and pain in the toe. Other symptoms include: ??? Bruising. ??? Stiffness. ??? Numbness. ??? A change in the way the toe looks. ??? Broken bones that poke through the skin. ??? Blood beneath the toenail. How is this diagnosed? This condition is diagnosed with a physical exam. You may also have X-rays. How is this treated? Treatment for this condition depends on the type of fracture and its severity. Treatment may include: ??? Taping the broken toe to a toe that is next to it (sarah taping). This is the most common treatment for fractures in which the bone has not moved out of place (non-displaced fracture). ??? Wearing a shoe that has a wide, rigid sole to protect the toe and to limit its movement. ??? Wearing a walking cast. ??? Having a procedure to move the toe back into place. ??? Surgery. This may be needed if the: ??? Pieces of broken bone are out of place (displaced). ??? Bone breaks through the skin. ??? Physical therapy. This is done to help regain movement and strength in the toe. You may need follow-up X-rays to make sure that the bone is healing well and staying in position. Follow these instructions at home: If you have a shoe: ??? Wear the shoe as told by your health care provider. Remove it only as told by your health care provider. ??? Loosen the shoe if your toes tingle, become numb, or turn cold and blue. ??? Keep the shoe clean and dry. If you have a cast: ??? Do not put pressure on any part of the cast until it is fully hardened. This may take several hours. ??? Do not stick anything inside the cast to scratch your skin. Doing that increases your risk of infection. ??? Check the skin around the cast every day. Tell your health care provider about any concerns. ??? You may put lotion on dry skin around the edges of the cast. Do not put lotion on the skin underneath the cast. ??? Keep the cast clean and dry. Bathing ??? Do not take baths, swim, or use a hot tub until your health care provider approves. Ask your health care provider if you can take showers. ??? If the shoe or cast is not waterproof: ??? Do not let it get wet. ??? Cover it with a watertight covering when you take a bath or a shower. Activity ??? Do not use the injured foot to support your body weight until your health care provider says that you can. Use crutches as directed. ??? Ask your health care provider: ??? What activities are safe for you during recovery. ??? What activities you need to avoid. ??? Do physical therapy exercises as directed. Driving ??? Do not drive or use heavy machinery while taking pain medicine. ??? Do not drive while wearing a cast on a foot that you use for driving. Managing pain, stiffness, and swelling ??? If directed, put ice on painful areas: ??? Put ice in a plastic bag. ??? Place a towel between your skin and the bag. ??? If you have a shoe, remove it as told by your health care provider. ??? If you have a cast, place a towel between your cast and the bag. ??? Leave the ice on for 20 minutes, 2???3 times per day. ??? Raise (elevate) the injured area above the level of your heart while you are sitting or lying down. General instructions ??? If your toe was treated with sarah taping, follow your health care provider's instructions for changing the gauze and tape. Change it more often if: ??? The gauze and tape get wet. If this happens, dry the space between the toes. ??? The gauze and tape are too tight and cause your toe to become pale or numb. ??? If you were not given a protective shoe, wear sturdy, supportive shoes. Your shoes should not pinch your toes and should not fit tightly against your toes. ??? Do not use any products that contain nicotine or tobacco, such as cigarettes and e-cigarettes. These can delay bone healing. If you need help quitting, ask your health care provider. ??? Take gfil-frs-gpahwne and prescription medicines only as told by your health care provider. ??? Keep all follow-up visits as told by your health care provider. This is important. Contact a health care provider if you have: ??? Pain that gets worse or does not get better with medicine. ??? A fever. ??? A bad smell coming from your cast. Get help right away if you have: ??? Any of the following in your toes or your foot: ??? Numbness that gets worse. ??? Tingling. ??? Coldness. ??? Blue skin. ??? Redness or swelling that gets worse. ??? Pain that suddenly becomes severe. Summary ??? A toe fracture is a break in one of the toe bones (phalanges). ??? Treatment depends on how severe your fracture is and how the pieces of the broken bone line up with each other. Treatment may include sarah taping, wearing a shoe or a cast, or using crutches. ??? Ice and elevate your foot to help lessen the pain and swelling. This information is not intended to replace advice given to you by your health care provider. Make sure you discuss any questions you have with your health care provider. Document Revised: 12/12/2018 Document Reviewed: 11/19/2018 [employer] Patient Education ?? 2021 [employer] Physician Outpatient Note * Yancy Fields, CUSTOMER SALES DISTRIBUTOR: PERFORM Event Display: Office Clinic Note Physician Authored Date: [id number] JACQUI FIGUEROA :1955 Age:67 years Sex:Female Visit Date:11/15/2022 Primary Care Physician: ESTELA MARQUEZ Chief Complaint Fell yesterday and she fell in her house barefoot. left pinky toe is bruised and has a cut on the underside. Also has a head wound. States no issues with the head wound. History of Present Illness Patient is a 67-year-old female who presents today with a chief complaint of left foot pain. ??She reports yesterday falling??injuring her foot??and striking her head. ??She reports she??was evaluated at a local urgent care for her head injury. ??She states she has noticed increased pain??in the foot. Physical Exam Vitals & Measurements T:??36.3?C ??(Tympanic)?? HR:??69??(Peripheral)?? RR:??16?? BP:??142/78?? SpO2:??98%?? WT:??100.24??kg?? Pain Score:??4?? Mild ecchymotic change to the left??fifth distal phalange, Medical Decision Making: Patient was evaluated for a foot injury, x-ray was obtained which reflects a mildly displaced??fracture??of the fifth distal??phalanx. ??She was placed in a walking boot for stability and comfort andinstructed to follow-up with orthopedics for recheck. Assessment/Plan 1.??Foot injury??S99.929A 2.??Toe fracture??S92.919A Patient Education Toe Fracture Problem List/Past Medical History Ongoing Active asthma Arthritis Diabetes Fibromyalgia Hyperlipemia Mild HTN Morbid obesity Osteopenia Sprain of [...] Cigarette Use: Never. Employment/School Retired, Work/School description: [employer]. Tobacco Never tobacco user Tobacco Use:. Family History Diabetes mellitus: Mother and Father. Heart attack: Mother and Father. Hyperlipidemia: Mother and Father. Hypertension: Grandmother (M). Osteoporosis: Mother. Electronically Signed on 11/15/22 09:24 PM Yancy Fields APRN Outpatient Summary note * Yancy Fields APRN: PERFORM Event Display: Ambulatory Patient Summary Authored Date: [id number] JACQUI FIGUEROA :1955 Age:67 years Sex:Female Visit Date:11/15/2022 Primary Care Physician: ESTELA MARQUEZ Ambulatory Visit Instructions We would like to thank you for allowing us to assist you with your healthcare needs. The following includes patient education materials and information regarding your injury/illness. After you leave the office, you may get your health information including your test results, physician notes and discharge information by accessing your Patient Portal. If you do not have a patient portal account set up, please contact __. Your Next Steps Scheduled Future Appointments Sunday 10:15 AM EST ?? Where: [facility] Status: Confirmed Medications What How Much When Instructions Unchanged aspirin (aspirin 81 mg oral capsule) 1 Capsules Oral (given by mouth) Every day do not exceed 48 capsules in 24 hours ?? Unchanged atorvastatin (atorvastatin 40 mg oral tablet) 1 tab Oral (given by mouth) Every day Unchanged cholecalciferol (Vitamin D3 50 mcg (2000 intl units) oral tablet, chewable) 1 tab Oral (given by mouth) Every day Unchanged metFORMIN (metFORMIN 500 mg oral tablet) 1 tab Oral (given by mouth) 2 times a day Unchanged metoprolol (metoprolol succinate 50 mg oral capsule, extended release) 1 Capsules Oral (given by mouth) Every day Unchanged multivitamin (multivitamin adult, oral tablet) 1 tab Oral (given by mouth) Every day Unchanged sertraline (sertraline 100 mg oral tablet) 1 tab Oral (given by mouth) Every day Your Summary Your Diagnosis Foot injury Toe fracture Your Care Team Attending Physician - Yancy Fields APRN Primary Care Physician - ESTELA MARQUEZ Allergies Ceclor sulfa drugs??(Rash) penicillin??(Rash) Education Materials Toe Fracture A toe fracture is a break in one of the toe bones (phalanges). A toe fracture may be: ? A crack in the surface of the bone (stress fracture). This often occurs in athletes. ? A break all the way through the bone (complete fracture). What are the causes? This condition may be caused by: ? Direct impact, such as from dropping a heavy object on your toe. ? Stubbing your toe. ? Twisting or stretching your toe out of place. ? Overuse or repetitive exercise. What increases the risk? You are more likely to develop this condition if you: ? Play contact sports. ? Have a condition that causes the bones to become thin and brittle (osteoporosis). ? Have a low calcium level. What are the signs or symptoms? The main symptoms of this condition are swelling and pain in the toe. Other symptoms include: ? Bruising. ? Stiffness. ? Numbness. ? A change in the way the toe looks. ? Broken bones that poke through the skin. ? Blood beneath the toenail. How is this diagnosed? This condition is diagnosed with a physical exam. You may also have X-rays. How is this treated? Treatment for this condition depends on the type of fracture and its severity. Treatment may include: ? Taping the broken toe to a toe that is next to it (sarah taping). This is the most common treatmentfor fractures in which the bone has not moved out of place (non-displaced fracture). ? Wearing a shoe that has a wide, rigid sole to protect the toe and to limit its movement. ? Wearing a walking cast. ? Having a procedure to move the toe back into place. ? Surgery. This may be needed if the: ? Pieces of broken bone are out of place (displaced). ? Bone breaks through the skin. ? Physical therapy. This is done to help regain movement and strength in the toe. You may need follow-up X-rays to make sure that the bone is healing well and staying in position. Follow these instructions at home: If you have a shoe: ? Wear the shoe as told by your health care provider. Remove it only as told by your health care provider. ? Loosen the shoe if your toes tingle, become numb, or turn cold and blue. ? Keep the shoe clean and dry. If you have a cast: ? Do not put pressure on any part of the cast until it is fully hardened. This may take several hours. ? Do not stick anything inside the cast to scratch your skin. Doing that increases your risk of infection. ? Check the skin around the cast every day. Tell your health care provider about any concerns. ? You may put lotion on dry skin around the edges of the cast. Do not put lotion on the skin underneath the cast. ? Keep the cast clean and dry. Bathing ? Do not take baths, swim, or use a hot tub until your health care provider approves. Ask your healthcare provider if you can take showers. ? If the shoe or cast is not waterproof: ? Do not let it get wet. ? Cover it with a watertight covering when you take a bath or a shower. Activity ? Do not use the injured foot to support your body weight until your health care provider says that you can. Use crutches as directed. ? Ask your health care provider: ? What activities are safe for you during recovery. ? What activities you need to avoid. ? Do physical therapy exercises as directed. Driving ? Do not drive or use heavy machinery while taking pain medicine. ? Do not drive while wearing a cast on a foot that you use for driving. Managing pain, stiffness, and swelling ? If directed, put ice on painful areas: ? Put ice in a plastic bag. ? Place a towel between your skin and the bag. ? If you have a shoe, remove it as told by your health care provider. ? If you have a cast, place a towel between your cast and the bag. ? Leave the ice on for 20 minutes, 2???3 times per day. ? Raise (elevate) the injured area above the level of your heart while you are sitting or lying down. General instructions ? If your toe was treated with sarah taping, follow your health care provider's instructions for changing the gauze and tape. Change it more often if: ? The gauze and tape get wet. If this happens, dry the space between the toes. ? The gauze and tape are too tight and cause your toe to become pale or numb. ? If you were not given a protective shoe, wear sturdy, supportive shoes. Your shoes should not pinchyour toes and should not fit tightly against your toes. ? Do not use any products that contain nicotine or tobacco, such as cigarettes and e-cigarettes. These can delay bone healing. If you need help quitting, ask your health care provider. ? Take umvt-vdc-ouayqsl and prescription medicines only as told by your health care provider. ? Keep all follow-up visits as told by your health care provider. This is important. Contact a health care provider if you have: ? Pain that gets worse or does not get better with medicine. ? A fever. ? A bad smell coming from your cast. Get help right away if you have: ? Any of the following in your toes or your foot: ? Numbness that gets worse. ? Tingling. ? Coldness. ? Blue skin. ? Redness or swelling that gets worse. ? Pain that suddenly becomes severe. Summary ? A toe fracture is a break in one of the toe bones (phalanges). ? Treatment depends on how severe your fracture is and how the pieces of the broken bone line up witheach other. Treatment may include sarah taping, wearing a shoe or a cast, or using crutches. ? Ice and elevate your foot to help lessen the pain and swelling. This information is not intended to replace advice given to you by your health care provider. Make sure you discuss any questions you have with your health care provider. Document Revised: 12/12/2018 Document Reviewed: 11/19/2018 [employer] Patient Education ?? 2021 [employer] Electronically Signed on: 11/15/2022 17:08 ESTSigned by:[facility] Patient Care team information Personnel Name: ISHAESTELA HARRISON Address: Address: [address] [place] [phone]
--- OUTSIDE RECORDS SUMMARY | 2023-07-06 12:42 | XMS_ITS | Continuity of Care Document ---
Author Name Unknown Organization [facility] Address [address] [place] [phone] Care Team Providers Care Relaster Name Role Phone ESTELA MARQUEZ Primary Care Physician Encounter [facility] NBR [id number] Date(s): 12/29/22 - 12/29/[address] [address] Discharge Disposition: Home or [...] Completed Open heart surgery 5 Comp leted [id number] 3MENISCUS REPAIR 2004 4BENIGN 1993 5VALVE REPLACEMENT 2020 Results Radiology Reports * Exam Date Time Procedure Performing Provider Status 12/29/22 12:22 PM XR Toe(s) 2+ Views Left Trell Olson ie R; Auth (Verified) Notes: (XR Toe(s) 2+ Views Left) Reason For Exam: toe fx XR Toe(s) 2+ Views Left EXAM DESCRIPTION: XR Toe(s) 2+ Views Left 12/29/2022 INDICATION: TOE FX TECHNIQUE: Left 5th toe, three views COMPARISON: 11/15/2022 IMPRESSION: Mildly displaced traumatic intra-articular fracture involving the medial base of the 5th proximal phalanx. No significant change in alignment. Fracture line remains visible No additional fracture with no dislocation No significant regional arthritic changes No regional radiopaque soft tissue foreign body. JOB #: [id number] Final Signed by: Venu Alvarez MD Signed (Electronic Signature): 12/29/2022 12:59 pm Social History Social History Type Response Tobacco Never tobacco user T obacco Use:. Sex XR Toes - left Views * Venu Alvarez MD: VERIFY, VERIFY Event Display: Report EXAM DESCRIPTION: XR Toe(s) 2+ Views Left 12/29/2022 INDICATION: TOE FX TECHNIQUE: Left 5th toe, three views COMPARISON: 11/15/2022 IMPRESSION: Mildly displaced traumatic intra-articular fracture involving the medial base of the 5th proximal phalanx. No significant change in alignment. Fracture line remains visible No additional fracture with no dislocation No significant regional arthritic changes No regional radiopaque soft tissue foreign body. JOB #: [id number] Final Signed by: Venu Alvarez MD Signed (Electronic Signature): 12/29/2022 12:59 pm Patient Care team information Care Team Personnel Name: ESTELA MARQUEZ Position: No Access Member Role: Primary Care Physician Address: Address: [address] [place] [phone] Care Team Related Persons Name: AMALIA MCGOWAN Name: JAYLENE MCGOWAN Name: DAGOBERTO FIGUEROA Address: Home [address] [place], [place] [id number] [facility]
--- OUTSIDE RECORDS SUMMARY | 2023-07-06 12:42 | XMS_ITS | Continuity of Care Document ---
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 Role Phone ESTELA MARQUEZ Primary Care Physician Encounter [facility] NBR [id number] Date(s): 10/20/22 - 10/20/22 [facility] [address] [place], [place] [address] Encounter Diagnosis Sprain of right acromioclavicular joint(Discharge Diagnosis) - 10/20/22 Discharge Disposition: Home or Self Care Attending Physician: Neymar Vogt MD Allergies, Adverse Reactions, Alerts Substance Reaction Severity Status penicillin Rash Unknown Active sulfa drugs Rash Mild Active Ceclor 1 Moderate Active 1MOUTH SORES Functional Status 10/20/22 Other exposure to Infectious Disease Non e [...] Completed Open heart surgery 5 Comp leted 57501 [id number] 3MENISCUS REPAIR 2004 4BENIGN 1993 5VALVE REPLACEMENT 2020 Vital Signs Most recent to oldest [Reference Range]: 1 Peripheral Pulse Rate [60-100 bpm] 74 bp m (10/20/22 1:32 PM) Blood Pressure [90-140/60-90 mmHg] 112/6 8mmHg (10/20/22 1:32 PM) Weight 104.33 kg (10/20/22 1:32 PM) Weight Measured (lbs) 230.008 lb (10/20/22 1:32 PM) Height 157.48 cm (10/20/22 1:32 PM) Height/Length Measured (inches) 62 inch (10/20/22 1:32 PM) BSA Measured 2.14 m2 (10/20/22 1:32 PM) Body Mass Index 42.07 kg/m2 (10/20/22 1:32 PM) Social History Social History Type Response Tobacco Never tobacco user T obacco Use:. Sex Physician Outpatient Note * Neymar Vogt MD: PERFORM Event Display: Office Clinic Note Physician Authored Date: [id number] CAROLINA SAUNDRA :1955 Age:67 years Sex:Female Visit Date:10/20/2022 Primary Care Physician: ESTELA MARQUEZ History of Present Illness The patient is a 67-year-old female who??3 weeks ago fell??directly??forward onto her chest, she immediate pain to that area??but over the next 2 days began to the also has pain to the shoulder.?? She ultimately went to urgent care where she was told she might have a fracture of her clavicle she was placed in a sling she comes in today for follow-up,??she says she is having some pain but localized mostly pain??to the??lateral aspect of the shoulder as well as the superior aspect of the shoulder.?? She denies prior history of injury to the right shoulder. ??Thus far she is had no treatment. Physical Exam Vitals & Measurements HR:??74??(Peripheral)?? BP:??112/68?? SpO2:??94%?? HT:??157.48??cm?? WT:??104.33??kg?? BMI:??42.07?? Pain Score:??2?? BSA:??2.14?? Review of studies: X-rays right shoulder reviewed,??there is some AC joint arthritis, no other pathology is seen, there is no fracture appreciated. ?? Both shoulders are examined. Range of motion of the shoulder is examined in the forward elevation, abduction, external rotation and internal rotation behind the back planes. External rotation is assessed both with the arm in neutral adduction and at 90 degrees of abduction. Similarly internal rotation is performed at 90 degrees of abduction and is compared with the contralateral side. Neer and Capone impingement signs are examined. Strength is assessed in forward elevation, abduction, externaland internal rotation planes.?Cross-arm adduction test is examined. The shoulder is systematically palpated anteriorlyin the region of the coracoid process, the anterior joint line and bicipital groove. The AC joint is palpated. The greater tuberosity is palpated. The posterior joint line is palpated. Mata and active compression tests are performed. The supraspinatus and infraspinatus fossa are examined for signs of atrophy. Stability is test using the apprehension, relocation and Jerk Test. ?? Focused exam of the right shoulder does show significant tenderness to the AC joint,??mildly positive impingement signs,??there is 4+ out of 5 strength to external rotation, 4 out of 5 strength abduction,??4+ out of 5 strength in internal rotation.?? No glenohumeral instability.?? There is pain with cuff isolation. Assessment/Plan 1.??Sprain of right acromioclavicular joint??S43.51XA Patient with I believe is a AC joint sprain and also a contusion of the rotator cuff,??I Mandy sendSaundra to physical therapy I think a few weeks of this and she will be better,??if she is not she will return and I likely will get an MRI of the shoulder or possibly discuss an injection. Problem List/Past Medical History Ongoing Active asthma [...] Cigarette Use: Never. 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 Tobacco Never tobacco user Tobacco Use:. Family History Diabetes mellitus: Mother and Father. Heart attack: Mother and Father. Hyperlipidemia: Mother and Father. Hypertension: Grandmother (M). Osteoporosis: Mother. Electronically Signed on 10/20/22 02:03 PM Neymar Vogt MD Patient Care team information Personnel Name: ESTELA MARQUEZ Address: Address: [address] [place] [phone]
--- OUTSIDE RECORDS SUMMARY | 2023-07-06 12:42 | XMS_ITS | Continuity of Care Document ---
Author Name Unknown Organization [facility] Address [address] [place] [address] Care Team Providers Care Tick Eradicator Name Role Phone ESTELA MARQUEZ Primary Care Physician [phone] Encounter [facility] NBR [id number] Date(s): 11/28/22 - 03/16/23 [facility] [address] [place] [address] [place] Encounter Diagnosis Pain in right shoulder(Discharge Diagnosis) - 11/14/22 Discharge Disposition: Home Attending Physician: Jamey Haile Admitting Physician: Neymar Vogt MD Referring Physician: [...] Completed Open heart surgery 5 Comp leted [id number] 3MENISCUS REPAIR 2004 4BENIGN 1993 5VALVE REPLACEMENT 2020 Social History Social History Type Response Tobacco Never tobacco user T obacco Use:. Sex Patient Care team information Care Team Personnel Name: ESTELA MARQUEZ Position: No Access Member Role: Primary Care Physician Address: Address: [address] [place] [phone] Care Team Related Persons Name: AMALIA MCGOWAN Name: JAYLENE MCGOWAN Name: DAGOBERTO FIGUEROA Address: Home [address] [place], [place] [id number] [facility]
--- OUTSIDE RECORDS SUMMARY | 2023-07-06 12:42 | XMS_ITS | Continuity of Care Document ---
Author Name Unknown Organization [facility] Address [address] [place] [phone] Care Team Providers Care Ophthalmic Medical Technician Name Role Phone ESTELA MARQUEZ Primary Care Physician [phone] Encounter [facility] NBR [id number] Date(s): 04/18/23 - 04/18/[address] [address] [place] Encounter Diagnosis Hyperlipidemia, unspecified(Final) - Anxiety disorder, unspecified(Final) - Type 2 diabetes mellitus without complications(Final) - Discharge Disposition: Home or Self Care Attending Physician: ESTELA MARQUEZ Admitting Physician: ESTELA MARQUEZ Referring Physician: ESTELA MARQUEZ Allergies, Adverse Reactions, Alerts Substance Reaction Severity [...] Completed Open heart surgery 5 Comp leted [id number] 3MENISCUS REPAIR 2004 4BENIGN 1993 5VALVE REPLACEMENT 2020 Results Laboratory List Name Date Basic Metabolic Panel 04/18/23 CBC w/ Diff 04/18/23 Automated Diff 04/18/23 Most recent to oldest [Reference Range]: 1 WBC [4.8-10.8 K/mcL] 7.8 K/mcL (04/18/23 9:55 AM) RBC [4.20-5.40 Million/mcL] 4.38 Million /mcL (04/18/23 9:55 AM) Neutro Auto [42.2-75.2 %] 74.1 % (04/18/23 9:55 AM) Lymph Auto [20.5-51.1 %] 18.7 % *LOW* (04/18/23 9:55 AM) Greer Auto [1.7-9.3 %] 5.8 % (04/18/23 9:55 AM) Basophil Auto [0.0-0.8 %] 0.5 % (04/18/23 9:55 AM) BUN [8-26 mg/dL] 20 mg/dL (04/18/23 9:55 AM) Glucose Level [74-106 mg/dL] 140 mg/dL *HI* (04/18/23 9:55 AM) Potassium Level [3.5-5.1 mmol/L] 4.3 mmo l/L (04/18/23 9:55 AM) Baso Absolute [0.0-0.2 K/mcL] 0.0 K/mcL (04/18/23 9:55 AM) MCV [81.0-99.0 fL] 90.4 fL (04/18/23 9:55 AM) MCHC [32.0-36.0 g/dL] 32.3 g/dL (04/18/23 9:55 AM) Osmolality [275-295 mOsm/kg] 275 mOsm/kg (04/18/23 9:55 AM) Sodium Level [134-143 mmol/L] 135 mmol/L (04/18/23 9:55 AM) Lymph Absolute [1.2-3.4 K/mcL] 1.5 K/mcL (04/18/23 9:55 AM) Hct [37.0-47.0 %] 39.6 % (04/18/23 9:55 AM) Calcium Level [8.9-10.3 mg/dL] 9.1 mg/dL (04/18/23 9:55 AM) Greer Absolute [0.1-0.6 K/mcL] 0.4 K/mcL (04/18/23 9:55 AM) MCH [27.0-31.0 pg] 29.2 pg (04/18/23 9:55 AM) Neutro Absolute [1.4-6.5 K/mcL] 5.8 K/mc L (04/18/23 9:55 AM) Hgb [12.0-16.0 g/dL] 12.8 g/dL (04/18/23 9:55 AM) MPV [7.4-10.4 fL] 10.7 fL *HI* (04/18/23 9:55 AM) Platelets [130-400 K/mcL] 199 K/mcL (04/18/23 9:55 AM) CO2 [22-32 mmol/L] 25 mmol/L (04/18/23 9:55 AM) Eos Absolute [0.0-0.2 K/mcL] 0.0 K/mcL (04/18/23 9:55 AM) Chloride Level [98-111 mmol/L] 99 mmol/L (04/18/23 9:55 AM) RDW-CV [11.5-14.5 %] 12.9 % (6/28/23 9:55 AM) BUN/Creat Ratio [8.0-20.0] 20.4 *HI* (04/18/23 9:55 AM) Imm Gran Absolute 0.03 *NA* (04/18/23 9:55 AM) Imm Gran Auto [0.0-0.5 %] 0.4 % (04/18/23 9:55 AM) Slide Review Not Indicated (04/18/23 9:55 AM) Creatinine Level [0.44-1.00 mg/dL] 0.98 mg/dL (04/18/23 9:55 AM) Anion Gap [3.0-12.0] 11.0 (04/18/23 9:55 AM) Eos, Auto [0.00-3.00 %] 0.50 % (04/18/23 9:55 AM) eGFR CKD-EPI [>=60 mL/min/1.73 m2] 62 mL /min/1.73 m2 (04/18/23 9:55 AM) Social History Social History Type Response Tobacco Never tobacco user T obacco Use:. Sex Patient Care team information Care Team Personnel Name: ESTELA MARQUEZ Position: No Access Member Role: Primary Care Physician Address: Address: [address] [place] [phone] [place] Care Team Related Persons Name: AMALIA MCGOWAN Name: JAYLENE MCGOWAN Name: DAGOBERTO FIGUEROA Address: Home [address] [place], [place] [id number] [facility]
--- OUTSIDE RECORDS SUMMARY | 2023-07-06 12:42 | XMS_ITS | Continuity of Care Document ---
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 Role Phone ESTELA MARQUEZ Primary Care Physician Encounter [facility] [place] [id number] Date(s): 11/15/22 - 11/15/[address] [address] [place] Discharge Disposition: Home or Self Care Attending Physician: Yancy Fields APRN Admitting Physician: Yancy Fields APRN Allergies, Adverse Reactions, Alerts Substance Reaction Severity Status penicillin Rash Unknown Active sulfa drugs Rash Mild Active Ceclor 1 Moderate Active 1MOUTH SORES Assessment and Plan Future Appointments Medications aspirin 81 mg oral capsule 81 [...] Completed Open heart surgery 5 Comp leted [id number] 3MENISCUS REPAIR 2004 4BENIGN 1993 5VALVE REPLACEMENT 2020 Results Radiology Reports * Exam Date Time Procedure Performing Provider Status 11/15/22 4:49 PM XR Toe(s) 2+ Views Left DomainUser, Ge nerated; Auth (Verified) Notes: (XR Toe(s) 2+ Views Left) Reason For Exam: pain after injury XR Toe(s) 2+ Views Left EXAM DESCRIPTION: XR Toe(s) 2+ Views Left 11/15/2022 INDICATION: PAIN AFTER INJURY TECHNIQUE: Left 5th toe, four views COMPARISON: None IMPRESSION: Mildly displaced traumatic intra-articular fracture involving the medial base of the 5th proximal phalanx, initial fracture diagnosis No additional fracture with no dislocation. Small soft tissue calcifications versus soft tissue foreign bodies in the lateral aspect of the 5th toe. No significant regional arthritic changes. JOB #: [id number] Final Signed by: Venu Alvarez MD Signed (Electronic Signature): 11/15/2022 4:54 pm Social History Social History Type Response Tobacco Never tobacco user T obacco Use:. Sex XR Toes - left Views * Venu Alvarez MD: VERIFY, VERIFY Event Display: Report EXAM DESCRIPTION: XR Toe(s) 2+ Views Left 11/15/2022 INDICATION: PAIN AFTER INJURY TECHNIQUE: Left 5th toe, four views COMPARISON: None IMPRESSION: Mildly displaced traumatic intra-articular fracture involving the medial base of the 5th proximal phalanx, initial fracture diagnosis No additional fracture with no dislocation. Small soft tissue calcifications versus soft tissue foreign bodies in the lateral aspect of the 5th toe. No significant regional arthritic changes. JOB #: [id number] Final Signed by: Venu Alvarez MD Signed (Electronic Signature): 11/15/2022 4:54 pm Patient Care team information Personnel Name: JIMMY ESTELA Quintin Address: Address: [address] [place] [phone]
[2023-07-06 12:44] LABS: Abs Immature Grans 0.04 10^3/uL (0.0-0.06); Absolute Basophil Count 0.05 10^3/uL (0.0-0.2); Absolute Eosinophil Count 0.13 10^3/uL (0.0-0.7); Absolute Lymphocyte Count 1.67 10^3/uL (1.2-3.4); Absolute Monocyte Count 0.58 10^3/uL (0.1-0.8); Absolute Neutrophil Count 5.58 10^3/uL (1.2-6.7); Basophils % 0.6; Eosinophils % 1.6; HCT 39.8 % (36.0-46.0); HGB 12.8 g/dL (11.2-15.7); Immature Grans % 0.5; Lymphocytes % 20.7; MCH 28.6 pg (27.0-33.0); MCHC 32.2 % (32.0-36.0); MCV 89 fL (80-95); MPV 10.5 fL (8.0-11.0); Monocytes % 7.2; Neutrophils % 69.4; Platelet Count 243 10^3/uL (130-400); RBC 4.48 10^6/uL (3.93-5.22); RDW 12.9 % (11.7-14.6); RDW-SD 41.9 fL; WBC 8.05 10^3/uL (4.4-10.8)
[2023-07-06 12:51] LABS: ESR 31 mm/hr (0-30)
[2023-07-06 13:20] LABS: C-Reactive Protein 0.74 mg/dL (0.0-0.3)
== END 2023-07-06 12:39 | disposition home or self-care (01) ==
LOC: LBO 12:39
PROVIDERS: PCP Nurse Practitioner Adult Health; Visit Provider Emergency Medicine
DX: M31.6 Other giant cell arteritis (principal)
CPT/HCPCS: 36415; 85652; 85025; 86140

== ENCOUNTER 2023-07-09 16:16 | Outpatient (REF) | payer MEDICARE, SELFPAY ==
[2023-07-09 19:55] LABS: Abs Immature Grans 0.03 10^3/uL (0.0-0.06); Absolute Basophil Count 0.06 10^3/uL (0.0-0.2); Absolute Eosinophil Count 0.15 10^3/uL (0.0-0.7); Absolute Lymphocyte Count 1.83 10^3/uL (1.2-3.4); Absolute Monocyte Count 0.45 10^3/uL (0.1-0.8); Absolute Neutrophil Count 5.15 10^3/uL (1.2-6.7); Basophils % 0.8; HCT 38.9 % (36.0-46.0); HGB 12.9 g/dL (11.2-15.7); Immature Grans % 0.4; Lymphocytes % 23.9; MCH 29.7 pg (27.0-33.0); MCHC 33.2 % (32.0-36.0); MCV 90 fL (80-95); MPV 11.5 fL (8.0-11.0); Monocytes % 5.9; Platelet Count 230 10^3/uL (130-400); RBC 4.34 10^6/uL (3.93-5.22); RDW 12.9 % (11.7-14.6); RDW-SD 42.5 fL; WBC 7.67 10^3/uL (4.4-10.8)
[2023-07-09 19:57] LABS: ESR 35 mm/hr (0-30)
[2023-07-09 20:07] LABS: Anion Gap 7.7 mmol/L (3-11); BUN 18 mg/dL (7-18); CO2 30.3 mmol/L (21.0-32.0); CREATININE 1.1 mg/dL (0.55-1.02); Calcium 9.2 mg/dL (8.5-10.1); Chloride 100 mmol/L (98-107); Estimated GFR 54.39 (mL/min/1.73m2); Glucose 128 mg/dL (74-106); Potassium 4.3 mmol/L (3.5-5.1); Sodium 138 mmol/L (136-145)
== END 2023-07-09 16:17 | disposition home or self-care (01) ==
LOC: LBO 16:16
PROVIDERS: PCP Nurse Practitioner Adult Health; Visit Provider Nurse Practitioner Adult Health
DX: R79.89 Other specified abnormal findings of blood chemistry (principal); R22.0 Localized swelling, mass and lump, head
CPT/HCPCS: 80048; 85652; 85025; 86140

== ENCOUNTER 2023-07-16 10:53 | Outpatient (CLI) | payer MEDICARE, SELFPAY ==
[2023-07-16 09:58] LABS: Abs Immature Grans 0.04 10^3/uL (0.0-0.06); Absolute Basophil Count 0.06 10^3/uL (0.0-0.2); Absolute Lymphocyte Count 1.83 10^3/uL (1.2-3.4); Absolute Monocyte Count 0.51 10^3/uL (0.1-0.8); Absolute Neutrophil Count 5.29 10^3/uL (1.2-6.7); Basophils % 0.8; Eosinophils % 2.5; HCT 38.9 % (36.0-46.0); HGB 12.4 g/dL (11.2-15.7); Immature Grans % 0.5; Lymphocytes % 23.1; MCH 28.9 pg (27.0-33.0); MCHC 31.9 % (32.0-36.0); MCV 91 fL (80-95); MPV 10.6 fL (8.0-11.0); Monocytes % 6.4; Neutrophils % 66.7; Platelet Count 194 10^3/uL (130-400); RBC 4.29 10^6/uL (3.93-5.22); RDW 13.2 % (11.7-14.6); RDW-SD 43.3 fL; WBC 7.93 10^3/uL (4.4-10.8)
[2023-07-16 10:00] LABS: ESR 28 mm/hr (0-30)
[2023-07-16 10:36] LABS: C-Reactive Protein 0.89 mg/dL (0.0-0.3); Calculated LDL 73 mg/dL (<100); Cholesterol 162 mg/dL (<200); HDL Cholesterol 48 mg/dL (40-60); Triglyceride 209 mg/dL (<150)
== END 2023-07-16 10:54 | disposition home or self-care (01) ==
LOC: LBO 10:53
PROVIDERS: PCP Nurse Practitioner Adult Health; Visit Provider Nurse Practitioner Adult Health
DX: E11.9 Type 2 diabetes mellitus without complications (principal); E78.5 Hyperlipidemia, unspecified; F41.8 Other specified anxiety disorders; M79.7 Fibromyalgia; R70.0 Elevated erythrocyte sedimentation rate; R79.82 Elevated C-reactive protein (CRP)
CPT/HCPCS: 36415; 80061; 85652; 82043; 82570; 85025; 86140

== ENCOUNTER 2023-07-16 16:42 | Outpatient (REF) | payer MEDICARE, SELFPAY ==
[2023-07-16 19:55] LABS: COMMENT (LAB VIEW ONLY) 206.79 mg/dL; Microalb ug/mg Crea 3.2 ug/mg Cr
== END 2023-07-16 16:43 | disposition home or self-care (01) ==
LOC: LBN 16:42
PROVIDERS: PCP Nurse Practitioner Adult Health; Visit Provider Nurse Practitioner Adult Health
DX: E11.9 Type 2 diabetes mellitus without complications (principal); E78.5 Hyperlipidemia, unspecified; F41.8 Other specified anxiety disorders
CPT/HCPCS: 82043; 82570

== ENCOUNTER 2023-07-24 01:55 | Outpatient (CLI) | payer MEDICARE, SELFPAY ==
[2023-07-24 13:44] LABS: C-Reactive Protein 0.61 mg/dL (0.0-0.3)
[2023-07-24 13:47] LABS: Hemoglobin A1C 6.6 % (<5.7)
[2023-07-24 16:30] LABS: ESR (LRH) 55 mm/hr
== END 2023-07-24 01:56 | disposition home or self-care (01) ==
LOC: LBO 01:55
PROVIDERS: Absent Provider Nurse Practitioner Adult Health; PCP Nurse Practitioner Adult Health; Visit Provider Nurse Practitioner Adult Health
DX: E11.9 Type 2 diabetes mellitus without complications (principal); E55.9 Vitamin D deficiency, unspecified; M85.80 Other specified disorders of bone density and structure, unspecified site; R22.0 Localized swelling, mass and lump, head; R51.9 Headache, unspecified; R70.0 Elevated erythrocyte sedimentation rate; R79.82 Elevated C-reactive protein (CRP)
CPT/HCPCS: 36415; 82306; 85652; 83036; 86140